=== PATIENT | female | born 1960 | race Caucasian/White ===

== ENCOUNTER 2017-07-27 13:45 | Emergency (ER) | payer OTHER ==
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
[2017-07-27 13:53] VITALS: O2SAT 91
[2017-07-27 15:16] VITALS: BP 117/74; PULSE 92; RESP 16; TEMP 97.2
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
== END 2017-07-27 15:17 | disposition home or self-care (01) ==
LOC: EDUNIT# → EEVIPCON 13:45
DX: S02.81XA Fracture of other specified skull and facial bones, right side, initial encounter for closed fracture (principal); Y04.2XXA Assault by strike against or bumped into by another person, initial encounter; Y93.89 Activity, other specified

== ENCOUNTER → 2018-10-07 | Outpatient (CLI) | payer MEDICAID | LOC: FLAB 13:07 | PROVIDERS: ATTEND Physician Assistant | DX: M25.562 Pain in left knee (principal); Z91.81 History of falling ==

== ENCOUNTER 2019-01-06 01:28 | Emergency (ER) | payer MEDICAID ==
[2019-01-06] MEDS ORDERED: KETOROLAC 15 MG/1 ML SDV IVP ONE (01:35)
[2019-01-06] MEDS ORDERED: HYDROmorphONE/DILAUDID 1 MG/ML INJ IVP ONE (01:35)
[2019-01-06 01:55] LABS: PLATELET COUNT 281 10^3/uL (150-400)
[2019-01-06] MEDS ORDERED: IOPAMIDOL (ISOVUE-300) 100 ML BTL ONE (01:59)
[2019-01-06] MEDS ORDERED: MIDAZOLAM 2 MG/2 ML VIAL IVP ONE (02:15)
[2019-01-06] MEDS ORDERED: HYDROmorphONE/DILAUDID 2 MG/ML INJ IVP ONE (02:16)
--- NOTE | 2019-01-06 02:17 | EDPHY ---
H & P Stated Complaint: R shoulder pain, neck pain, hysterical, anxiety, ETOH Time Seen by Provider: 01/06/19 01:35 HPI/ROS: Chief Complaint: Neck and back pain HPI: 58-year-old woman began having a sudden onset of pain in her right neck and shoulder and back at 9:00 a.m. This evening. Pain was severe. Patient began drinking alcohol in an attempt to alleviate the pain. No new numbness or weakness. She arrived to the emergency department screaming and hysterical. She is ambulating without any difficulty. She does have a history of Graves disease. She is unable to provide any further history because she will not answer any of my questions. She is screaming and hollering, repeatedly sitting down and standing up. ROS: 10 systems were reviewed and were negative except those elements noted in the HPI. PMH: Graves disease, Social History: No smoking, occasional alcohol, no recreational drug use Family History: non-contributory Physical Exam: Gen: Awake, Alert, hollering and pain, tearful, anxious, hysterical HEENT: Nose: no rhinorrhea Eyes: PERRLA, EOMI Mouth: Moist mucosa Neck: Supple, no JVD, complains of tenderness anywhere I touch artery back of her neck right or left even with the lightest of touch. Chest: nontender, lungs clear to auscultation Heart: S1, S2 normal, no murmur Abd: Soft, non-tender, no guarding Back: no CVA tenderness, no midline tenderness diffuse tenderness in her upper back complaining of severe pain wherever I touch Ext: no edema, non-tender Skin: no rash Neuro: CN II-XII intact, Sensation grossly intact, Strength 5/5 in bilateral upper and lower extremities - Personal History Current Tetanus Diphtheria and Acellular Pertussis (TDAP): No - Medical/Surgical History Hx Asthma: No Hx Chronic Respiratory Disease: No Hx Diabetes: No Hx Cardiac Disease: No Hx Renal Disease: No Hx Cirrhosis: No Hx Alcoholism: No Hx HIV/AIDS: No Hx Splenectomy or Spleen Trauma: No Other PMH: PMH: Breast CA, Graves disease, - Social History Smoking Status: Heavy smoker Constitutional: Initial Vital Signs Temperature (C) 36.7 C 01/06/19 01:33 Heart Rate 91 01/06/19 01:33 Respiratory Rate 20 01/06/19 01:33 Blood Pressure 188/88 H 01/06/19 01:33 O2 Sat (%) 93 01/06/19 01:33 O2 Delivery Mode Oxymask Allergies/Adverse Reactions: antihistamines Allergy (Uncoded 07/28/11 21:06) Home Medications: Medication Instructions Recorded Methmizole 07/28/11 traMADol 07/27/17 Medical Decision Making - Diagnostics Imaging Results: EXAM: CT Chest with Intravenous Contrast. CLINICAL HISTORY: CP TECHNIQUE: Axial computed tomography images of the chest with intravenous contrast. CONTRAST: With; 90mL/isovue 300 COMPARISON: None provided. FINDINGS: LUNGS: The lungs are clear. No focal airspace consolidation. No pulmonary mass. Basilar atelectasis. PLEURAL SPACES: No pleural effusion. No pneumothorax. HEART AND MEDIASTINUM: No cardiomegaly. No significant pericardial effusion. LYMPH NODES: No lymphadenopathy. BONES: No focal osseous abnormality or acute fracture. Degenerative changes of the spine. CHEST WALL AND UPPER ABDOMEN: Hepatic steatosis. The upper abdominal solid organs are otherwise unremarkable. The chest wall is unremarkable. Hypodense nodule right thyroid lobe, subcentimeter. IMPRESSION: 1. No acute cardiopulmonary finding. 2. No pulmonary thrombus/emboli. 3. Hepatic steatosis. ELECTRONICALLY SIGNED BY: Patrick Martienz DO January 06, 2019 3:02:22 AM MDT ED Course/Re-evaluation: 58-year-old intoxicated woman presenting in hysterics complaining of severe neck and upper back pain. She is neurologically intact. Given her difficult history examination and the severity of her symptoms and presentation patient will be going to CT scan to rule out acute aortic dissection. CT scan is negative for acute dissection or other acute process. Patient is now resting after IV analgesia and some sedation. Plan will be to reassess when she is more awake and coherent. Patient is improved. She is awake alert. She is completely neurologically intact. Patient states she has cleared the bathroom. She ambulated unassisted to the bathroom without any difficulty. She has some persistent right trapezius spasm with mild tenderness. I placed a Lidoderm patch. Symptoms consistent with musculoskeletal pain and torticollis. She has no neurologic symptoms whatsoever. No risk factors for acute spinal cord process. She had has a normal CT scan of her chest. Plan will be for discharge and follow up with primary care. Oral analgesia [id number]. - Data Points Laboratory Results: Laboratory Results 01/06/19 01:45 01/06/19 01:45 01/06/19 01/06/19 01/06/19 01:56 01:45 01:45 WBC 11.79 10^3/uL H 10^3/uL (3.80-9.50) RBC 4.17 10^6/uL L 10^6/uL (4.18-5.33) Hgb 13.3 g/dL g/dL (12.6-16.3) POC Hgb 14.6 gm/dL gm/dL (12.6-16.3) Hct 38.7 % % (38.0-47.0) POC Hct 43 % % (38-47) MCV 92.8 fL fL (81.5-99.8) MCH 31.9 pg pg (27.9-34.1) MCHC 34.4 g/dL g/dL (32.4-36.7) RDW 14.4 % % (11.5-15.2) Plt Count 281 10^3/uL 10^3/uL (150-400) MPV 8.5 fL L fL (8.7-11.7) Neut % (Auto) 62.8 % % (39.3-74.2) Lymph % (Auto) 24.9 % % (15.0-45.0) [place] % (Auto) 10.1 % % (4.5-13.0) Eos % (Auto) 1.6 % % (0.6-7.6) Baso % (Auto) 0.3 % % (0.3-1.7) Nucleat RBC Rel Count 0.0 % % (0.0-0.2) Absolute Neuts (auto) 7.39 10^3/uL H 10^3/uL (1.70-6.50) Absolute Lymphs (auto) 2.94 10^3/uL 10^3/uL (1.00-3.00) Absolute Monos (auto) 1.19 10^3/uL H 10^3/uL (0.30-0.80) Absolute Eos (auto) 0.19 10^3/uL 10^3/uL (0.03-0.40) Absolute Basos (auto) 0.04 10^3/uL 10^3/uL (0.02-0.10) Absolute Nucleated RBC 0.00 10^3/uL 10^3/uL (0-0.01) Immature Gran % 0.3 % % (0.0-1.1) Immature Gran # 0.04 10^3/uL 10^3/uL (0.00-0.10) POC Sodium 128 mEq/L L mEq/L (135-145) Sodium 129 mEq/L L mEq/L (135-145) POC Potassium 4.2 mEq/L mEq/L (3.3-5.0) Potassium 4.5 mEq/L mEq/L (3.5-5.2) POC Chloride 92 mEq/L L mEq/L (97-110) Chloride 92 mEq/L L mEq/L (97-110) Carbon Dioxide 22 mEq/l mEq/l (22-31) POC Total CO2 24 mEq/L mEq/L (22-31) Anion Gap 15 mEq/L H mEq/L (6-14) POC BUN 9 mg/dL mg/dL (7-23) BUN 10 mg/dL mg/dL (7-23) Creatinine 0.5 mg/dL L mg/dL (0.6-1.0) POC Creatinine 0.8 mg/dL mg/dL (0.6-1.0) Estimated GFR > 60 Glucose 122 mg/dL H mg/dL (70-100) POC Glucose 125 mg/dL H mg/dL (70-100) Calcium 9.5 mg/dL mg/dL (8.5-10.4) Ethyl Alcohol 228 mg/dL H mg/dL (0-10) Medications Given: Discontinued Medications Hydromorphone HCl (Dilaudid) 0.5 mg IVP EDNOW ONE Stop: 01/06/19 01:36 Last Admin: 01/06/19 01:43 Dose: 0.5 mg Hydromorphone HCl (Dilaudid) 1 mg IVP EDNOW ONE Stop: 01/06/19 02:17 Last Admin: 01/06/19 02:24 Dose: 1 mg Ketorolac Tromethamine (Toradol) 15 mg IVP EDNOW ONE Stop: 01/06/19 01:36 Last Admin: 01/06/19 01:45 Dose: 15 mg Midazolam HCl (Versed) 1 mg IVP EDNOW ONE Stop: 01/06/19 02:16 Last Admin: 01/06/19 02:26 Dose: 1 mg Point of Care Test Results: Chemistry 01/06/19 01:56 POC Sodium 128 mEq/L L mEq/L (135-145) POC Potassium 4.2 mEq/L mEq/L (3.3-5.0) POC Chloride 92 mEq/L L mEq/L (97-110) POC Total CO2 24 mEq/L mEq/L (22-31) POC BUN 9 mg/dL mg/dL (7-23) POC Creatinine 0.8 mg/dL mg/dL (0.6-1.0) POC Glucose 125 mg/dL H mg/dL (70-100) ISTAT H&H 01/06/19 01:56 POC Hgb 14.6 gm/dL gm/dL (12.6-16.3) POC Hct 43 % % (38-47) Departure - Departure Disposition: Home, Routine, Self-Care Clinical Impression: Neck pain Condition: Good Instructions: Neck Pain (ED), Spasmodic Torticollis (ED) Additional Instructions: Take ibuprofen, 600 mg, 3 times a day. You may also take acetaminophen, 1000 mg every 6 hours. You may replace a Lidoderm patch every 24 hr, these are available over-the- counter. Apply ice for 15 minutes of every hour while awake. Make sure to remain active. Did do not lay in bed or sit in a chair for long periods. Avoid heavy lifting or bending at work until cleared by your physician. Follow up with your primary care physician in 2-3 days for further evaluation. Referrals: NONE *PRIMARY CARE P,. [Primary Care Provider] - As per Instructions
[2019-01-06] MEDS ORDERED: LIDOCAINE 4%/MENTHOL 1% PATCH TD ONE (04:30)
[2019-01-06 04:44] VITALS: BP 115/69
[2019-01-06] MEDS ORDERED: PATCH REMOVAL 1 EA PATCH TD SCH (21:00)
== END 2019-01-06 04:56 | disposition home or self-care (01) ==
DX: M54.2 Cervicalgia (principal); M25.511 Pain in right shoulder; E05.00 Thyrotoxicosis with diffuse goiter without thyrotoxic crisis or storm
CPT/HCPCS: 82435-PO; 82565-PO; 82947-PO; 84132-PO; 84295-PO; 84520-PO; 85014-ER; 96374; G0480; J1170; J1885; J2250; Q9967

== ENCOUNTER 2019-01-06 12:13 | Emergency (ER) | payer MEDICAID ==
[2019-01-06] MEDS ORDERED: KETOROLAC 30 MG/1 ML SDV IVP ONE (12:45)
[2019-01-06] MEDS ORDERED: ACETAMINOPHEN 500 MG TAB PO ONE (13:44)
[2019-01-06] MEDS ORDERED: LIDOCAINE 4%/MENTHOL 1% PATCH TD ONE (13:44)
--- NOTE | 2019-01-06 13:49 | EDPHY ---
H & P Stated Complaint: neck pain and spasms Time Seen by Provider: 01/06/19 13:08 HPI/ROS: CHIEF COMPLAINT: Neck pain HISTORY OF PRESENT ILLNESS: 58-year-old female with alcoholism presents with severe neck pain. Onset of right-sided neck pain yesterday evening. The pain is severe and associated with muscle spasms. She was seen in this emergency department and had an unremarkable CT of the chest. She was discharged home on a lidocaine patch and [id number] medications. Persistent severe pain since then. She had a couple of cocktails this morning to help alleviate the pain. The pain continues to be severe and increases with any movement. No chest or back pain. No numbness or weakness. REVIEW OF SYSTEMS: complete 10 point ROS reviewed and is negative except for the noted elements in the HPI - Personal History Current Tetanus/Diphtheria Vaccine: Yes Current Tetanus Diphtheria and Acellular Pertussis (TDAP): Yes - Medical/Surgical History Hx Asthma: No Hx Chronic Respiratory Disease: No Hx Diabetes: No Hx Cardiac Disease: No Hx Renal Disease: No Hx Cirrhosis: No Hx Alcoholism: No Hx HIV/AIDS: No Hx Splenectomy or Spleen Trauma: No Other PMH: PMH: Breast CA, Graves disease, - Social History Smoking Status: Heavy smoker Alcohol Use: Heavy - Physical Exam Exam: General Appearance: Alert, slurred speech Eyes: Pupils equal and round, horizontal nystagmus, no conjunctival pallor or injection ENT, Mouth: Mucous membranes moist Neck: Normal inspection, diffuse tenderness, even to very light palpation of the entire neck and paraspinous musculature, including the right suprascapular area; full range of motion without pain Respiratory: Lungs are clear to auscultation Cardiovascular: Regular rate and rhythm Gastrointestinal: Abdomen is soft and nontender Neurological: A&O, nonfocal, normal gait Skin: Warm and dry, no rash Extremities: Right upper extremity-full range of motion of the shoulder elbow and wrist without pain Psychiatric: Mood and affect normal Constitutional: Initial Vital Signs Temperature (C) 36.6 C 01/06/19 12:20 Heart Rate 84 01/06/19 12:20 Respiratory Rate 18 01/06/19 12:20 Blood Pressure 143/77 H 01/06/19 12:20 O2 Sat (%) 96 01/06/19 12:20 O2 Delivery Mode Room Air Allergies/Adverse Reactions: antihistamines Allergy (Uncoded 07/28/11 21:06) Home Medications: Medication Instructions Recorded Methmizole 07/28/11 traMADol 07/27/17 Hydrocodone/APAP 325 [Lorman 1 - 2 tab PO Q4H PRN #10 tab 01/06/19 5/325] Medical Decision Making - Diagnostics Imaging Results: Imaging Impressions Neck CTA 01/06/19 13:45 Impression: 1. No acute vascular findings. 2. Complete opacification of the left maxillary sinus, with possible erosion of the medial wall of the left maxillary sinus. 3. Thyroid ophthalmopathy. 4. Diffusely heterogeneous thyroid, with multiple small nodules. Thyroid ultrasound may be useful for further evaluation. 5. Slight increase in moderate to severe multilevel degenerative change including severe bilateral neural foraminal stenosis. 6. Additional findings, as above. Findings discussed with Marian Zavala M.D., on January 06, 2019 at 1446. Stenoses are calculated using [place] Symptomatic Carotid Endarterectomy Trial (NASCET) criteria. E:amm Imaging: Discussed imaging studies w/ fisher scallop Radiologist ED Course/Re-evaluation: CT scan of the neck reveals DJD, otherwise unremarkable. Results discussed with the patient. She feels much better and the pain has almost completely resolved. She has received Toradol and Decadron IV, as well as a lidocaine patch. I will discharge her home. Presentation consistent with neck strain. No evidence vascular dissection, cervical radiculopathy or bony abnormality. Strongly encouraged to follow up with primary care physician. - Data Points Laboratory Results: Laboratory Results 01/06/19 14:30 01/06/19 14:30 01/06/19 01/06/19 14:30 14:30 WBC 11.07 10^3/uL H 10^3/uL (3.80-9.50) RBC 3.65 10^6/uL L 10^6/uL (4.18-5.33) Hgb 11.8 g/dL L g/dL (12.6-16.3) Hct 33.7 % L % (38.0-47.0) MCV 92.3 fL fL (81.5-99.8) MCH 32.3 pg pg (27.9-34.1) MCHC 35.0 g/dL g/dL (32.4-36.7) RDW 14.0 % % (11.5-15.2) Plt Count 224 10^3/uL 10^3/uL (150-400) MPV 8.3 fL L fL (8.7-11.7) Neut % (Auto) 77.8 % H % (39.3-74.2) Lymph % (Auto) 11.0 % L % (15.0-45.0) [place] % (Auto) 10.6 % % (4.5-13.0) Eos % (Auto) 0.2 % L % (0.6-7.6) Baso % (Auto) 0.1 % L % (0.3-1.7) Nucleat RBC Rel Count 0.0 % % (0.0-0.2) Absolute Neuts (auto) 8.62 10^3/uL H 10^3/uL (1.70-6.50) Absolute Lymphs (auto) 1.22 10^3/uL 10^3/uL (1.00-3.00) Absolute Monos (auto) 1.17 10^3/uL H 10^3/uL (0.30-0.80) Absolute Eos (auto) 0.02 10^3/uL L 10^3/uL (0.03-0.40) Absolute Basos (auto) 0.01 10^3/uL L 10^3/uL (0.02-0.10) Absolute Nucleated RBC 0.00 10^3/uL 10^3/uL (0-0.01) Immature Gran % 0.3 % % (0.0-1.1) Immature Gran # 0.03 10^3/uL 10^3/uL (0.00-0.10) Sodium 124 mEq/L L mEq/L (135-145) Potassium 3.5 mEq/L mEq/L (3.5-5.2) Chloride 88 mEq/L L mEq/L (97-110) Carbon Dioxide 21 mEq/l L mEq/l (22-31) Anion Gap 15 mEq/L H mEq/L (6-14) BUN 8 mg/dL mg/dL (7-23) Creatinine 0.4 mg/dL L mg/dL (0.6-1.0) Estimated GFR > 60 Glucose 108 mg/dL H mg/dL (70-100) Calcium 8.9 mg/dL mg/dL (8.5-10.4) Ethyl Alcohol 105 mg/dL H mg/dL (0-10) Medications Given: Discontinued Medications Acetaminophen (Tylenol) 1,000 mg PO EDNOW ONE Stop: 01/06/19 13:45 Last Admin: 01/06/19 14:30 Dose: 1,000 mg Dexamethasone (Decadron) 4 mg PO EDNOW ONE Stop: 01/06/19 14:51 Last Admin: 01/06/19 14:54 Dose: 4 mg Ketorolac Tromethamine (Toradol) 30 mg IVP EDNOW ONE Stop: 01/06/19 12:46 Last Admin: 01/06/19 12:52 Dose: 30 mg Miscellaneous Medication (Icy Hot Lidocaine/Menthol 4%/1% Patch) 1 patch TD EDNOW ONE Stop: 01/06/19 13:45 Last Admin: 01/06/19 14:32 Dose: 1 patch Departure - Departure Disposition: Home, Routine, Self-Care Clinical Impression: Neck pain Condition: Good Instructions: Acute Neck Pain (ED) Additional Instructions: Ibuprofen 600 mg 3 times daily while the pain persists. Tylenol 650 mg every 4 hr as needed for pain. Use a lidocaine patch as directed on the packaging. Call your physician for a follow-up appointment. Referrals: John Nicholson MD [Medical Doctor] - As per Instructions Prescriptions: Hydrocodone/APAP 5/325 [Lorman 5/325] 1 - 2 tab PO Q4H PRN #10 tab PRN Reason: Pain, Moderate
[2019-01-06] MEDS ORDERED: IOPAMIDOL (ISOVUE 370) 100 ML BTL IV ONE (14:00)
[2019-01-06] MEDS ORDERED: DEXAMETHASONE 4 MG TAB PO ONE (14:50)
[2019-01-06 14:52] LABS: PLATELET COUNT 224 10^3/uL (150-400)
[2019-01-06 15:50] VITALS: BP 120/90
[2019-01-06] MEDS ORDERED: PATCH REMOVAL 1 EA PATCH TD SCH (21:00)
== END 2019-01-06 15:50 | disposition home or self-care (01) ==
LOC: EDUNIT#
DX: M54.2 Cervicalgia (principal); F10.10 Alcohol abuse, uncomplicated; F17.200 Nicotine dependence, unspecified, uncomplicated; Z85.3 Personal history of malignant neoplasm of breast
CPT/HCPCS: 96374; G0480; J1885; Q9967

== ENCOUNTER 2019-01-10 14:58 | Inpatient (IN) | payer MEDICAID ==
[2019-01-10] MEDS ORDERED: DIAZEPAM 10 MG/2 ML SYR IVP ONE (15:18)
[2019-01-10] MEDS ORDERED: KETAMINE 200 MG/20 ML VIAL IVP ONE (15:18)
[2019-01-10] MEDS ORDERED: HYDROmorphONE/DILAUDID 2 MG/ML INJ IVP ONE ×2 (15:18→19:39)
--- NOTE | 2019-01-10 15:19 | EDPHY ---
H & P Time Seen by Provider: 01/10/19 15:07 HPI/ROS: CHIEF COMPLAINT: Severe neck back and arm pain HISTORY OF PRESENT ILLNESS: Patient was seen here twice on January 06 with severe neck and back pain and had CT chest and CT neck both with IV contrast which did not show dissection or acute bony abnormality. She was discharged on pain medication returns today saying that is much worse. She says she can't sleep. She has neck pain radiating to both shoulders and elbows and the pain is worse with abduction of either arm. States it is severe. Associated with some tingling and a "shock" going down both legs. No headache or incontinence. REVIEW OF SYSTEMS: Eye: no change in vision ENT: no sore throat Cardiac: no chest pain or syncope Pulmonary: no cough or SOB Abdomen: no vomiting, diarrhea, abdominal pain Musculoskeletal: HPI Skin: no rash Neuro: no headache Constitutional: no fever : no urinary symptoms A comprehensive 10 point review of systems is otherwise negative aside from elements mentioned in the history of present illness. PAST MEDICAL HISTORY: Includes breast cancer, and Graves disease Social history: Smoker, here with a neighbor General Appearance: Alert and conversant, cooperative. Eyes: No scleral icterus. ENT, Mouth: Normal mucous membranes. Respiratory: Normal respiratory effort, breath sounds equal, lungs are clear to auscultation. Cardiovascular: Regular rate and rhythm. Gastrointestinal: Abdomen is soft and non tender. Neurological: Alert, face symmetric, normal sensory in extremities. Motor is difficult to determine upper extremities because she will not abduct her arms due to pain at the shoulders. Speech is fluent. Patellar reflexes 1+ bilateral and toes are downgoing, extensor hallucis strength normal. No clonus. She is ambulatory. Skin: No zoster. Patient is very hyperesthetic to touch. Musculoskeletal: No midline spinal tenderness. No extremity tenderness. I can rotate both arms without pain although when I try passive abduction it hurts her on both sides in her shoulders. Can't actively abduct due to pain, per patient. She is tender to palpation in both upper arms but compartments are soft. Normal motor sensory and radial pulse in both hands/wrists. Psychiatric: Appears anxious and agitated. Intermittently tearful. Emergency Department course/MDM: Patient is intermittently screaming in pain despite my standing right next to her in the room conducting the interview. Consideration is given for central cervical disc, I think that given her recent CT angiography studies that vascular dissection or aneurysm or fracture are all unlikely. Ketamine 30, Valium 5, Dilaudid 0.5, MRI cervical spine. Differential considered including but not limited to central cervical disc herniation, rhabdomyolysis, polymyalgia rheumatica, septic joint in the shoulder. 193: C3-5 epidural fluid collection, [place]. A possible cervical epidural abscess. 1937: Discussed with Astrid, recommended IV antibiotics, will review MRI, wants her to be admitted to medicine. Blood cultures, IV vancomycin 1 g. Smoking Status: Heavy smoker Constitutional: Initial Vital Signs Temperature (C) 36.4 C 01/10/19 15:02 Heart Rate 76 01/10/19 15:02 Respiratory Rate 18 01/10/19 15:02 Blood Pressure 116/96 H 01/10/19 15:02 O2 Sat (%) 96 01/10/19 15:02 O2 Delivery Mode Nasal Cannula O2 (L/minute) 4 Allergies/Adverse Reactions: antihistamines Allergy (Uncoded 07/28/11 21:06) Home Medications: Medication Instructions Recorded Methmizole 07/28/11 traMADol 07/27/17 Hydrocodone/APAP 5/325 [[place] 1 - 2 tab PO Q4H PRN #10 tab 01/06/19 5/325] Medical Decision Making - Diagnostics Imaging Results: Imaging Impressions Cervical Spine MRI 01/10/19 15:19 Impression: 1. Peripherally enhancing right dorsal epidural fluid collection, suggesting abscess C3-C4 through C5, with possible extension through the right C4-C5 neural foramina/facets, with a right paraspinal fluid collection/abscess measuring up to 4.5 cm craniocaudal. 2. Extensive inflammation in the area of the fluid collection and abscess, including along the right C3 through C5 facets and neural foramina, with edema/ enhancement of the right C4-C5 facets, making it difficult to exclude osteoarthritis. 3. Multilevel degenerative change as above, with severe bilateral neural foraminal stenosis from C3 through C7. Findings discussed with Dr. Jeremy Rashid on January 10, 2019 at 1936 hours. PICC Line Insertion 01/10/19 16:48 Impression: 5 Austrian double lumen peripherally inserted central catheter is ready to use. Bibasilar reticular opacities probably represent subsegmental atelectasis. Guidance Ultrasound 01/10/19 16:51 Impression: 5 Austrian double lumen peripherally inserted central catheter is ready to use. Bibasilar reticular opacities probably represent subsegmental atelectasis. Chest X-Ray 01/10/19 17:16 Impression: 5 Austrian double lumen peripherally inserted central catheter is ready to use. Bibasilar reticular opacities probably represent subsegmental atelectasis. 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 Rashid, exclusively with the care of this patient was 40 minutes, exclusive of PA or CARDIAC MONITOR time and exclusive of separate procedures. The organ system at risk was neurologic and I ordered pain medication, IV antibiotics, multiple diagnostics, specialist consultation to stabilize the patient and prevent worsening of the patient's condition. - Data Points Laboratory Results: Laboratory Results 01/10/19 15:30 01/10/19 19:51 01/10/19 01/10/19 01/10/19 19:51 15:30 15:30 WBC 14.52 10^3/uL H 10^3/uL (3.80-9.50) RBC 4.07 10^6/uL L 10^6/uL (4.18-5.33) Hgb 12.9 g/dL g/dL (12.6-16.3) Hct 38.3 % % (38.0-47.0) MCV 94.1 fL fL (81.5-99.8) MCH 31.7 pg pg (27.9-34.1) MCHC 33.7 g/dL g/dL (32.4-36.7) RDW 13.6 % % (11.5-15.2) Plt Count 264 10^3/uL 10^3/uL (150-400) MPV 9.0 fL fL (8.7-11.7) Neut % (Auto) 84.5 % H % (39.3-74.2) Lymph % (Auto) 7.6 % L % (15.0-45.0) [place] % (Auto) 7.2 % % (4.5-13.0) Eos % (Auto) 0.2 % L % (0.6-7.6) Baso % (Auto) 0.1 % L % (0.3-1.7) Nucleat RBC Rel Count 0.0 % % (0.0-0.2) Absolute Neuts (auto) 12.26 10^3/uL H 10^3/uL (1.70-6.50) Absolute Lymphs (auto) 1.10 10^3/uL 10^3/uL (1.00-3.00) Absolute Monos (auto) 1.05 10^3/uL H 10^3/uL (0.30-0.80) Absolute Eos (auto) 0.03 10^3/uL 10^3/uL (0.03-0.40) Absolute Basos (auto) 0.02 10^3/uL 10^3/uL (0.02-0.10) Absolute Nucleated RBC 0.00 10^3/uL 10^3/uL (0-0.01) Immature Gran % 0.4 % % (0.0-1.1) Immature Gran # 0.06 10^3/uL 10^3/uL (0.00-0.10) ESR 110 MM/HR H MM/HR (0-30) Sodium 120 mEq/L L mEq/L REJ (135-145) Potassium 3.9 mEq/L mEq/L TNP (3.5-5.2) Chloride 86 mEq/L L mEq/L TNP (97-110) Carbon Dioxide 21 mEq/l L mEq/l TNP (22-31) Anion Gap 13 mEq/L mEq/L TNP (6-14) BUN 14 mg/dL mg/dL TNP (7-23) Creatinine 0.5 mg/dL L mg/dL TNP (0.6-1.0) Estimated GFR > 60 TNP Glucose 81 mg/dL mg/dL TNP (70-100) Calcium 8.7 mg/dL mg/dL TNP (8.5-10.4) Creatine Kinase 42 IU/L IU/L TNP (0-156) C-Reactive Protein Pending TNP Medications Given: Vancomycin/Sodium Chloride (Vancomycin 1 Gm (Premix)) 250 mls @ 250 mls/hr IV EDNOW ONE PRN Reason: Protocol Stop: 01/10/19 20:38 Last Admin: 01/10/19 20:01 Dose: 250 mls Discontinued Medications Diazepam (Valium) 5 mg IVP EDNOW ONE Stop: 01/10/19 15:19 Last Admin: 01/10/19 18:01 Dose: 5 mg Hydromorphone HCl (Dilaudid) 0.5 mg IVP EDNOW ONE Stop: 01/10/19 15:19 Last Admin: 01/10/19 18:10 Dose: 0.5 mg Hydromorphone HCl (Dilaudid) 1 mg IVP EDNOW ONE Stop: 01/10/19 19:40 Last Admin: 01/10/19 20:00 Dose: 1 mg Sodium Chloride (Ns) 1,000 mls @ 0 mls/hr IV EDNOW ONE; Wide Open PRN Reason: Protocol Stop: 01/10/19 20:01 Last Admin: 01/10/19 20:12 Dose: 1,000 mls Ketamine HCl (Ketamine) 30 mg IVP EDNOW ONE Stop: 01/10/19 15:19 Last Admin: 01/10/19 20:00 Dose: 30 mg Departure - Departure Disposition: [facility] Clinical Impression: Abscess in epidural space of cervical spine Condition: Serious
[2019-01-10 15:47] LABS: PLATELET COUNT 264 10^3/uL (150-400)
[2019-01-10] MEDS ORDERED: ALTEPLASE 2 MG VIAL IVP PRN (16:48)
[2019-01-10] MEDS ORDERED: GADOBUTROL 10 ML VIAL IVP ONE (19:03)
[2019-01-10] MEDS ORDERED: VANCOMYCIN HCL/NORMAL SALINE 250 ML IV ONE (19:39)
--- NOTE | 2019-01-10 19:57 | PDCONSULT ---
Instructional Support Specialist Note: NEUROSURGERY imaging reviewed, full consult to follow 58F with neck and arm pain, MRI shows dorsal cervical epidural abscess with moderate to severe stenosis and fluid collection/abscess in the paraspinous muscles toward the right. while it is possible that this may do fine with IR drainage of the muscular abscess and IV antibiotics, would likely favor right C4-5 hemilaminotomy and washout. keep NPO for now, will consider surgical intervention tomorrow blood cultures pending, consult ID please call if there are any neurologic changes Astrid
[2019-01-10] MEDS ORDERED: NS 1,000 ML IV ONE (20:00)
[2019-01-10 20:22] LABS: CREATINE KINASE 42 IU/L (0-156)
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
[2019-01-10] MEDS ORDERED: GABAPENTIN 300 MG CAP PO SCH (21:00)
[2019-01-10] MEDS ORDERED: ONDANSETRON 4 MG/2 ML VIAL IVP PRN (21:30)
[2019-01-10] MEDS ORDERED: ACETAMINOPHEN 325 MG TAB PO PRN (21:30)
[2019-01-10] MEDS: NS 1,000 ML IV SCH (21:35)
[2019-01-10] MEDS ORDERED: LORazepam 2 MG/ML INJ IVP ONE (22:53)
[2019-01-10] MEDS: ZOLPIDEM TARTRATE 5 MG TAB PO PRN (23:00)
[2019-01-10] MEDS: HYDROmorphONE/DILAUDID 1 MG/ML INJ IVP PRN (23:00)
[2019-01-10] MEDS: MELATONIN 3 MG TAB PO SCH (23:16)
[2019-01-10] MEDS: CEFEPIME HCL 2 GM in NS 100 ML IV SCH (23:42)
[2019-01-11] MEDS: CEFEPIME HCL 2 GM in NS 100 ML IV SCH (06:38)
[2019-01-11] MEDS: NS 1,000 ML IV SCH ×2 (06:41→21:26)
[2019-01-11] MEDS ORDERED: VANCOMYCIN 1.25 GM in NS 250 ML IV SCH (08:00)
[2019-01-11] MEDS: SPIRONOLACTONE 25 MG TAB PO SCH (08:53)
[2019-01-11] MEDS: LOSARTAN POTASSIUM 25 MG TAB PO SCH (08:55)
[2019-01-11] MEDS: traMADol 50 MG TAB PO SCH ×2 (08:56→21:24)
[2019-01-11] MEDS: FLECAINIDE ACETATE 100 MG TAB PO SCH ×2 (08:56→21:24)
[2019-01-11] MEDS: FUROSEMIDE 20 MG TAB PO SCH ×2 (08:56→15:36)
[2019-01-11] MEDS: METHIMAZOLE 5 MG TAB PO SCH (08:57)
[2019-01-11] MEDS: HYDROmorphONE/DILAUDID 1 MG/ML INJ IVP PRN (09:02)
--- NOTE | 2019-01-11 10:28 | PDCONSULT ---
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 precedex - MRI thoracic and lumbar spine (severe pain also in left lumbar area and hip) - on vanc and ceftriaxone - case discussed with ID, Dr. Mcmillan - continue ICU care with frequent neuro checks, call immediately with any weakness or new neurologic deficit Astrid
--- NOTE | 2019-01-11 10:55 | GCON ---
[f rep st] CONSULTATION INFECTIOUS DISEASE CONSULTATION PATIENT. DATE OF CONSULTATION: 01/11/2019 REQUESTING PHYSICIAN: Dr. Luis Silveira. REASON FOR CONSULTATION: Cervical epidural abscess. HISTORY OF PRESENT ILLNESS: The patient is a 58-year-old female with a past medical history of atrial fibrillation, alcoholism, and hyperthyroidism, who I am asked to see in consultation for a cervical epidural abscess. History is limited due to the patient's inability to provide history secondary to ongoing pain. The patient describes having worsening neck pain in the cervical region over the last several weeks. She also notes that she has had fever, chills and night sweats for the last 2 weeks. She does describe sustaining a fall during that timeframe. Difficult to determine historically if she has had any recent skin infections or dental problems. She denies any urinary tract symptoms. The patient was seen in the emergency department beginning on 01/06/2019, with neck pain. At that time, a neck CTA was performed, which showed no acute vascular findings, moderate to severe multilevel degenerative disk disease with bilateral neural foraminal stenosis, and complete opacification of left maxillary sinus with question of erosion of the medial wall left maxillary sinus. She was treated supportively during that timeframe. A CT scan of the chest was also obtained which showed no evidence of dissection or pulmonary emboli. She returned to the emergency department on 01/10/2019, with significant worsening of her neck pain that was interfering with sleep. Pain was noted radiate to both shoulders and arms. She also complains now of new onset left buttock pain. Laboratory evaluation revealed a white blood cell count of 14.5 with 84% neutrophils. C-reactive protein was elevated at 268. MRI of the cervical spine was obtained based on the above presentation and shows findings of a peripherally enhancing fluid collection at the right dorsal aspect of the spinal cord extending from C3-C4 through the midportion of C5 measuring 2.5 cm x 1.3 x 0.6 cm compatible with epidural abscess; epidural enhancement extends inferiorly to T3. There is also noted to be fluid collection in the right C4-5 facet region with an irregular fluid collection in the right posterior paraspinal soft tissues measuring 2.9 x 1.6 x 4.5 cm. There is evidence of cervical cord compression associated with the epidural abscess. The patient was started empirically on vancomycin and cefepime. Blood cultures were obtained. Preliminary neurosurgical evaluation indicates plans for incision and drainage with timing complicated by use of Pradaxa for her atrial fibrillation. Given the above findings, I am now asked to assist in her ongoing management. PAST MEDICAL HISTORY: Atrial fibrillation, congestive heart failure, alcoholism , hyperthyroidism, breast cancer treated with radiation therapy, hypertension. PAST SURGICAL HISTORY: Unable to obtain surgical history and review of outpatient records in [place] does not show any surgical history. CURRENT MEDICATIONS: Vancomycin 1.25 g IV q.12 hours, cefepime 2 g IV q.8 hours , flecainide 50 mg p.o. twice daily, Lasix 20 mg p.o. twice daily, Neurontin 300 mg p.o. at bedtime, Dilaudid as needed for pain, Cozaar 12.5 mg p.o. daily, melatonin 3 mg p.o. at bedtime, methimazole 5 mg p.o. daily, metoprolol-XL 200 mg p.o. daily, Aldactone 12.5 mg p.o. daily, Ultram 50 mg p.o. twice daily. ALLERGIES: Antihistamines, which cannot be further characterized. SOCIAL HISTORY: ER records note patient is a smoker and with heavy alcohol intake; this cannot be quantified by me today. FAMILY HISTORY: Cannot be obtained. REVIEW OF SYSTEMS: Outside that noted in the HPI, remainder of 10-system review is unremarkable except for ongoing pain which has been difficult to control. PHYSICAL EXAMINATION: VITAL SIGNS: Temperature 36.7, heart rate 107, respiratory rate 18, blood pressure 147/75, oxygen saturation 94% on 2 L. GENERAL: The patient is an obese female in mild distress secondary to pain; she appears nontoxic. HEENT: There is no scleral icterus, conjunctival injection, or conjunctival petechiae. There is exophthalmos present bilaterally. Oropharynx shows dry mucous membranes. Dentition in fair repair. There is no nasal discharge. No sinus tenderness. NECK: Tender with range of motion, but no meningismus. There is no point tenderness over the cervical spine. No palpable adenopathy present. CHEST: Clear to auscultation bilaterally without adventitious sounds. Respiratory effort is normal. CARDIOVASCULAR: Tachycardic, with a 2/6 early systolic murmur heard throughout. No gallops or rubs noted. ABDOMEN: Obese, diffusely tender without peritoneal signs. Bowel sounds are present. No palpable organomegaly. MUSCULOSKELETAL: No cyanosis, clubbing, or edema. There is a resolving bruise with edema over the left anterior cabrales and some small adjacent abrasions without cellulitis. No stigmata of endocarditis present. There is pain with internal rotation of the left hip. NEUROLOGIC: Patient responds to questions and mumbles responses. Cranial nerves 2-12 appear grossly intact. Hand strength in the upper extremities is 5/5 bilaterally. Foot strength is also 5/ 5 bilaterally in the lower extremities, but elicits pain in the left lower extremity. LYMPHATICS: No cervical or supraclavicular nodes. No inguinal nodes palpable. : Rust catheter is in place. SKIN: No intertrigo. LABORATORY DATA: White blood cell count 14.5, hematocrit 38.3, platelets 264, neutrophils 85%. Serum creatinine is 0.5, admission sodium 120, current sodium 128, CRP 268. TSH 3.0, T4 1.6, T3 2.5. Alcohol level on 01/06/2019, 228 and 105 respectively for each ED visit. Blood cultures x2 are pending. Cervical spine MRI as outlined above, which was reviewed and interpreted by me with Radiology today. IMPRESSION: Cervical epidural abscess: Most likely, this will be due to organisms such as Staphylococcus aureus or beta-hemolytic streptococci; oropharyngeal organisms also of consideration with gram-negative rods in the differential diagnosis, but of lower likelihood. The patient does not have discrete pseudomonal risk factors. Suspect patient had transient bacteremia at some point leading to subsequent seeding of degenerative spine. Given the presence of left buttock pain, I think additional imaging is warranted to ensure no evidence of lumbar epidural abscess or psoas abscess which could also present in similar fashion. We will obtain echocardiogram given presence of heart murmur to assess for any potential endocarditis. RECOMMENDATIONS: 1. Agree with vancomycin 1.25 g IV q.12 hours. 2. Ceftriaxone 2 g IV q.12 hours. 3. Discontinue cefepime given no pseudomonal risk factors. 4. Plans for imaging of lumbar spine with MRI if patient can tolerate. 5. We will review further with Neurosurgery regarding surgical plans for drainage of cervical epidural abscess. 6. Follow up blood cultures as available. 7. Echocardiogram as outlined above. 8. Thank you for this consultation. We will continue to follow with you. /[id number]/MODL MTDD
--- NOTE | 2019-01-11 12:33 | ECHO ---
[email or web address] [address] [address] Main: [phone] Echocardiography Examination Transthoracic Name: NIGEL HENDERSON MR#: [id number] Study Date: 01/11/2019 Study Time: 10:43 AM Date of : 1960 Age: 58 year(s) Height: 167.6 cm (66 in.) Weight: 79.83 kg (176 lb.) BSA: 1.89 m2 Gender: Female Examination: Echo Contrast: Image Quality: Technically Difficult Rhythm: Sinus tachycardia Heart Rate: 111 bpm BP: 133 mmHg/79 mmHg Indication: epidural abcess, heart murmur, assess for valvular abnormalities Procedure Staff Referring Physician: Musical Therapist: Tamy Thomas [facility] Reading Physician: Thomas Bond MD Requesting Provider: Ordering Physician: Lalo Mcmillan Indication: epidural abcess, heart murmur, assess for valvular abnormalities Measurements Chambers AV/MV Label Value Normal Value Label Value Normal Value LVOT Vmax 0.92 m/s (0.7m/s - 1.1m/s) AV PGmax 10 mmHg LVOTd 2.1 cm (1.8cm - 2cm) AV Vmax 1.62 m/s LVDd, 2D 4.4 cm (3.9cm - 5.3cm) CINDI (Vmax) 2 cm2 LVDs, 2D 3 cm (2.1cm - 4cm) TV/PV IVSd, 2D 0.9 cm (0.6cm - 1.1cm) Label Value Normal Value LVPWd, 2D 0.8 cm PV PGmax 4 mmHg LVEF, 2D 63 % (54% - 74%) PV Vmax, Caliper 1 m/s (0.6m/s - 0.9m/s) LADs, 2D 2.5 cm (2.7cm - 3.8cm) Additional Vessels Label Value Normal Value AoAsc 2.8 cm AoRoot, 2D 3.2 cm (1.4cm - 2.6cm) Conclusions Left Ventricle: CONCLUSIONS:1)Very technically limited echo.2)Normal LV size and systolic function with a LVEF of 63%.3)All four cardiac valves poorly visualized but no obvious vegetations noted.note: if clinically suspicious for SBE, consider NICHOLAS. Patient: NIGEL HENDERSON Study Date: 01/11/2019 Page 1 of 2 10:43 AM Findings Left Ventricle: Left ventricle is normal in size. CONCLUSIONS: 1)Very technically limited echo. 2)Normal LV size and systolic function with a LVEF of 63%. 3)All four cardiac valves poorly visualized but no obvious vegetations noted. note: if clinically suspicious for SBE, consider NICHOLAS. EF evaluated by fractional shortening (2D). Cannot rule out wall motion abnormality due to poor endocardial definition. Cannot determine LAP and Diastolic Dysfunction Grade. Right Ventricle: Grossly normal right ventricular size. Right ventricular systolic function is normal. Left Atrium: The left atrium is normal in size. Right Atrium: The right atrium is normal in size. Mitral Valve: Mitral valve is not well visualized. No mitral valve stenosis. No obvious vegetation is identified on the mitral valve. Aortic Valve: Aortic valve not well visualized. There is no aortic stenosis. No vegetation is identified in the aortic valve. Tricuspid Valve: No tricuspid valve stenosis. No vegetation is identified in the tricuspid valve. Pulmonary artery pressure cannot be assessed due to inadequate TR signal. Pulmonic Valve: Pulmonic valve is poorly visualized. Aorta: The aortic root size in 2D measures 3.2 cm. The aortic root exhibits normal size. The ascending aorta measures 2.8 cm. Aorta Measurements AoRoot, 2D is 3.2 cm. IVC: The inferior vena cava is normal in size and course. Pericardium: No pericardial effusion. Exam Details Procedure Ordered: Echo Procedure Status: Routine study Image Quality: Technically Difficult Facility Location: Cardiac Echo 1 (No Signature Object) Patient: NIGEL HENDERSON Study Date: 01/11/2019 Page 2 of 2 10:43 AM [id number]
--- NOTE | 2019-01-11 12:47 | HOSPPROG ---
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 Cont current medications. May need bridging pending surgical timing cont vancomycin. Cefepime changed to Rocephin per ID. Check TTE. Check MRI thoracic/lumbar regions. Cultures pending Na has increased by 8 in about 12 hours. Will hold fluids and monitor Na closely monitor volume status closely. She is on diuretics chronically Pain mgmt: NSG is considering Precedex. She has not received a large amount of narcotics. Dilaudid PRN, Tramadol scheduled, Gabapentin scheduled Subjective: sleeping. She was given IV Dilaudid earlier Objective: Vital Signs Temp Pulse Resp BP Pulse Ox 36.8 C 112 H 19 132/103 H 93 01/11/19 12:00 01/11/19 12:00 01/11/19 12:00 01/11/19 12:00 01/11/19 12:00 Laboratory Results 01/11/19 11:25 01/10/19 01/11/19 01/12/19 05:59 05:59 05:59 Intake Total 921 120 Output Total 1550 Balance -629 120 - Physical Exam Constitutional: no apparent distress Eyes: PERRL, EOMI Ears, Nose, Mouth, Throat: moist mucous membranes Cardiovascular: regular rate and rhythym Respiratory: no respiratory distress Gastrointestinal: normoactive bowel sounds Skin: warm Psychiatric: interacting appropriately, not anxious Lymph, Heme, Immunologic: No petechiae ICD10 Worksheet Patient Problems: Problems Problem Status Onset Abscess in epidural space of cervical spine Acute
[2019-01-11] MEDS: METOPROLOL SUCCINATE XR 100 MG TAB PO SCH (13:36)
[2019-01-11] MEDS: NAFCILLIN SODIUM 2 GM in D5W 100 ML IV SCH ×3 (13:51→21:24)
[2019-01-11] MEDS ORDERED: ACETAMINOPHEN 325 MG TAB PO SCH ×2 (14:00→22:00)
--- NOTE | 2019-01-11 14:26 | PDMN ---
Medical Necessity Medical necessity: Pt meets IP criteria per MD & MCG MG-N Neurology; est los >2 mn for eval/tx of cervical epidural abscess with mod/severe spinal stenosis, intermittent afib, hyponatremia, severe 06/12 pain & encephalopathy; admit to ICU for further workup/close monitoring, IV abx, Neurosurgery/ID consults & Precedex gtt; hx AFIB on AC, CHF, alcoholism; per progress note & order 01/11/19
[2019-01-11] MEDS: ACETAMINOPHEN 500 MG TAB PO SCH ×2 (14:55→22:09)
[2019-01-11] MEDS: GABAPENTIN 300 MG CAP PO SCH ×2 (15:36→21:24)
--- NOTE | 2019-01-11 16:13 | ASMTCMCOM ---
CM Note CM Note Notes: Chart reviewed for discharge planninf purposes. Patient is a 56 year old female admitted via ED for c/o severe pain in her neck with radiation down her arms. She is admtted to ICU for spinal abcess. CM to follow for needs. Plan: TBD Date Signed: 01/11/2019 04:12 PM Electronically Signed By:Sushma Reyes RN
[2019-01-11] MEDS ORDERED: GADOBUTROL 10 ML VIAL IVP ONE (17:20)
[2019-01-11] MEDS: DEXMEDETOMIDINE HCL 400 MCG in NS 100 ML IV SCH (18:33)
[2019-01-11] MEDS: MELATONIN 3 MG TAB PO SCH (21:24)
[2019-01-12] MEDS: NAFCILLIN SODIUM 2 GM in D5W 100 ML IV SCH ×6 (02:13→23:41)
[2019-01-12] MEDS: HYDROmorphONE/DILAUDID 1 MG/ML INJ IVP PRN (03:04)
[2019-01-12] MEDS: ACETAMINOPHEN 500 MG TAB PO SCH ×3 (05:24→21:53)
[2019-01-12 05:38] LABS: PLATELET COUNT 207 10^3/uL (150-400)
[2019-01-12] MEDS: FUROSEMIDE 20 MG TAB PO SCH (06:04)
[2019-01-12] MEDS ORDERED: POTASSIUM CL 20 MEQ/15 ML UDCUP PO ONE (06:18)
[2019-01-12] MEDS ORDERED: MAGNESIUM OXIDE 400 MG TAB PO ONE (06:19)
--- NOTE | 2019-01-12 08:26 | NEUSURGPN ---
Assessment/Plan: A: 58 yo female with cervical and para cervical abscess. p: -MRI T and L spine performed as well due to hip and abdominal pain and no other signs of abscess found. Some epidural enhancement down to T3 but no other abscess -On IV abx per ID -Was on Pradaxa so unable to washout until Sunday -Continue q2 hour neuro checks-stable and intact. No signs of spinal cord compresson -Plan for OR tomorrow morning (still confirming with OR on time for C4-5 laminectomy for washout of epidural abscess -NPO midnight -Will consent in am- too somnolent to consent currently -Optimize pain management- will try muscle relaxant for low back/hip pain -Discussed with S: Patient doing somewhat better this morning. Per RN did have to start on small amount of Precedex after MRI due to pain. No changes in arm or leg strength. Continued shoulder and neck pain. O: Somnolent but arousable, quickly falls asleep after performing commands but alert to person, situation, place, year NAD, VSS CN II-XII grossly intact PERRL, EOMI BUE 5/5 Negative Hoffmans bilaterally BLE 5/5= SILT - Physician Discussed Patient with : Astrid Neurosurgery Physical Exam - Vitals, I&O, Labs I and O 01/11/19 01/12/19 01/13/19 05:59 05:59 05:59 Intake Total 921 1890 Output Total 1550 1450 Balance -629 440 Weight 79.379 kg Intake: Oral (ml) 610 IV Intake (ml) 530 IV Infused (ml) 921 750 Ns 1,000 ml @ 100 mls/hr 921 750 IV CONT ESTHER Rx#: [id number] Output: Urine (ml) 1550 1450 Bedpan 100 Catheter 1450 1450 Other: Number of Stools Bedpan 0 Catheter 0 Vital Signs Temp Pulse Resp BP Pulse Ox 36.5 C 86 16 107/80 94 01/12/19 06:00 01/12/19 06:00 01/12/19 06:00 01/12/19 06:00 01/12/19 06:00 Laboratory Results 01/12/19 05:10 01/12/19 05:10 ICD10 Worksheet Patient Problems: Problems Problem Status Onset Abscess in epidural space of cervical spine Acute
[2019-01-12] MEDS: SPIRONOLACTONE 25 MG TAB PO SCH (08:27)
[2019-01-12] MEDS: LOSARTAN POTASSIUM 25 MG TAB PO SCH (08:28)
[2019-01-12] MEDS: GABAPENTIN 300 MG CAP PO SCH ×3 (08:30→21:52)
[2019-01-12] MEDS: traMADol 50 MG TAB PO SCH ×3 (08:30→22:02)
[2019-01-12] MEDS: FLECAINIDE ACETATE 100 MG TAB PO SCH ×2 (08:31→21:53)
[2019-01-12] MEDS: METHIMAZOLE 5 MG TAB PO SCH (08:31)
[2019-01-12] MEDS: METOPROLOL SUCCINATE XR 100 MG TAB PO SCH (08:31)
--- NOTE | 2019-01-12 08:38 | PCMIDPN ---
Assessment/Plan: Assessment/Plan: * Cervical epidural abscess with MSSA bacteremia: Blood culture show 2 of 2 sets with MSSA by PCR identification. Plans for incision and drainage of cervical epidural abscess in a.m. given prior receipt of Pradaxa. MRI of T and L-spine do not show other foci of infection. Continue nafcillin pending clearance of blood cultures with probable transition to cefazolin thereafter. Repeat blood cultures in a.m. to assess for clearing of bacteremia. TTE without overt evidence of endocarditis although limited study. Plan NICHOLAS if unable to clear bacteremia after source control obtained. PICC line will need to be changed at some point once clearance of bacteremia obtain given this was placed at time of active bacteremia. 01/12/19 08:36 01/12/19 08:41 Subjective: Patient is somnolent but arousable this a.m.. Nursing notes appropriate interaction when awake with significant pain still being present. Objective: Vital Signs Temp Pulse Resp BP Pulse Ox 36.8 C 81 14 106/71 98 01/12/19 08:00 01/12/19 08:31 01/12/19 08:00 01/12/19 08:31 01/12/19 08:00 Laboratory Results 01/12/19 05:10 01/12/19 05:10 01/11/19 01/12/19 01/13/19 05:59 05:59 05:59 Intake Total 921 1890 Output Total 1550 1450 Balance -629 440 ESR 110 MM/HR (0-30) H 01/10/19 15:30 C-Reactive Protein 268.3 mg/L (<10.0) H 01/10/19 19:51 Nafcillin # 2 Blood cultures 2/2 sets MSSA Thoracic and lumbosacral MRI without evidence of epidural abscess; epidural enhancement extends to T3 Transthoracic echocardiogram without overt evidence of endocarditis although limited study - Physical Exam General Appearance: non-toxic, other (Somnolent), No apparent distress EENT: other (Exophthalmos present), No scleral icterus, No conjunctival petechiae Respiratory: lungs clear, No respiratory distress Cardiac/Chest: regular rate, rhythm, No systolic murmur Extremities: other (Mild edema over left anterior cabrales without active cellulitis ) Abdomen: non-tender, No distended Skin: No embolic lesions - Line/s LUE PICC Lines: No drainage, No erythema ICD10 Worksheet Patient Problems: Problems Problem Status Onset Abscess in epidural space of cervical spine Acute
[2019-01-12] MEDS: METHOCARBAMOL 750 MG TAB PO SCH ×3 (08:39→21:53)
[2019-01-12] MEDS ORDERED: traMADol 50 MG TAB PO PRN (11:50)
[2019-01-12] MEDS ORDERED: PROTOCOL POTASSIUM 1 DOSE MISC PRN (11:54)
[2019-01-12] MEDS ORDERED: PROTOCOL MAGNESIUM 1 DOSE IV PRN (11:54)
--- NOTE | 2019-01-12 11:59 | HOSPPROG ---
Hospitalist Progress Note Assessment/Plan: #Epidural Cervical Mass with Mod/Severe spinal stenosis #MSSA Bacteremia #Buttock pain, left hip pain #Afib, currently in SR #Chronic AC #ETOH abuse #Acute Encephalopathy, metabolic #Hyponatremia, low since early January of 2019 #Grave disease on Methimazole, Thyroid function testing ok #CHF #Hypotension Plan: -ID following, Nafcillin -Pain mgtmt: Precedex drip per NSG. Muscle relaxant per NSG. Will also increase Gabapentin and Tramadol. Dilaudid IV PRN. Hoping to avoid over sedation -Volume looks euvolemic. Given Hypotension, will decrease Lasix, stop Spironolactone, hold Cozaar -Na is stable. She doesn't look dehydrated or with volume overload. Urine studies likely with SiADH but on diuretics. Will fluid restrict. recheck Na in a.m. -check hip xr -I&D tomorrow -Holding Pradaxa Subjective: pain is well controlled earlier. However, per nursing report she has been having substantial intermittent pain. Objective: Vital Signs Temp Pulse Resp BP Pulse Ox 36.9 C 72 16 83/53 L 95 01/12/19 10:00 01/12/19 10:00 01/12/19 10:00 01/12/19 10:00 01/12/19 10:00 Laboratory Results 01/12/19 05:10 01/12/19 05:10 01/11/19 01/12/19 01/13/19 05:59 05:59 05:59 Intake Total 921 1890 360 Output Total 1550 1450 Balance -629 440 360 - Physical Exam Constitutional: no apparent distress Eyes: PERRL, EOMI Ears, Nose, Mouth, Throat: moist mucous membranes, hearing normal Cardiovascular: regular rate and rhythym, No edema Respiratory: no respiratory distress, no rales or rhonchi, clear to auscultation Gastrointestinal: normoactive bowel sounds, soft, non-tender abdomen Skin: warm Musculoskeletal: generalized weakness Neurologic: AAOx3, sensation intact bilaterally, weakness Psychiatric: interacting appropriately, not anxious, not encephalopathic Lymph, Heme, Immunologic: No petechiae ICD10 Worksheet Patient Problems: Problems Problem Status Onset Abscess in epidural space of cervical spine Acute
--- NOTE | 2019-01-12 15:39 | PDINTPN ---
Program Rep Progress Note Assessment/Plan: Assessment: Cervical epidural abscess: With moderate-severe cervical stenosis. Blood cultures positive for MSSA. On nafcillin per ID. Pain fairly well controlled most of the time, currently off Precedex, but at times we can't with severe pain , but more so in the hip than the neck today Hyponatremia: Improved. Likely SIADH. Hip pain: Had a fall a few weeks ago. Atrial fibrillation: Currently in sinus rhythm. On Pradaxa at admission, now held Plan: Continue fluid restriction. Dilaudid p.r.n. Pain, with Precedex being used as needed. Continue antibiotics per ID. Hold Pradaxa. Anticipate surgery by Dr. Resendiz on Sunday. Await results of hip x-ray. 01/12/19 15:40 01/12/19 15:41 Subjective: Sleeping but arousable. Complains of hip pain when awakened. Objective: Vital Signs Temp Pulse Resp BP Pulse Ox 37.1 C 74 18 93/49 L 96 01/12/19 14:00 01/12/19 14:00 01/12/19 14:00 01/12/19 14:00 01/12/19 14:00 Laboratory Results 01/12/19 05:10 01/12/19 05:10 01/11/19 01/12/19 01/13/19 05:59 05:59 05:59 Intake Total 921 1890 360 Output Total 1550 1450 Balance -629 440 360 Microbiology 01/10/19 19:51 Blood Blood Panel (PCR) - Final S.aureus Methicillin Suscept. 01/10/19 19:51 Blood Blood Culture - Preliminary 01/10/19 19:51 Blood Staphylococcus Aureus Physical Exam - Physical Exam General Appearance: no apparent distress, No alert EENT: normal ENT inspection Neck: normal inspection Respiratory: lungs clear, normal breath sounds Cardiac/Chest: regular rate, rhythm, No edema Abdomen: non-tender, soft Skin: normal color, warm/dry Extremities: normal inspection Neuro/Psych: No alert (Somnolent but arousable) ICD10 Worksheet Patient Problems: Problems Problem Status Onset Abscess in epidural space of cervical spine Acute
--- NOTE | 2019-01-12 15:59 | GHP ---
[f rep st] HISTORY AND PHYSICAL DATE OF ADMISSION: 01/10/2019 REFERRING PHYSICIAN: Efrain Mccall MD PULMONARY/CRITICAL CARE CONSULTATION: REASON FOR REFERRAL: Evaluation and management of encephalopathy and pain. HISTORY OF PRESENT ILLNESS: Ms. Vallejo is a 58-year-old woman with a history of atrial fibrillation, alcoholism, and hyperthyroidism. She was admitted to the hospital yesterday with increasing cervica l pain, as well as some fevers, chills and sweats. She was seen in the emergency department a few da ys earlier and had a CT angiogram of the neck, which was unremarkable, as was CT scan of the chest. She also had some left buttock pain. She had an MRI at the time of admission, which demonstrated a c ervical epidural abscess. She has continued to report significant pain here in the ICU, despite the use of Dilaudid. PAST MEDICAL HISTORY: 1. Atrial fibrillation. 2. Congestive heart failure. 3. Alcoholism. 4. Hyperthyroidism. 5. History of breast cancer. MEDICATIONS: At the time of admission included methimazole, tramadol, dabigatran, spironolactone, me toprolol, losartan, furosemide, and flecainide. ALLERGIES: Antihistamines. SOCIAL HISTORY: The patient has a history of tobacco and alcohol abuse. FAMILY HISTORY: Unremarkable. REVIEW OF SYSTEMS: A 10-point review of systems is difficult to obtain completely, as the patient is either somnolent or complaining of significant pain, and not amenable to an interview. PHYSICAL EXAMINATION: GENERAL: The patient is intermittently either sleeping or wakes up complainin g of severe pain in her neck. VITAL SIGNS: Blood pressure is 132/73 with a heart rate of 83. She i s afebrile, oxygen saturations 99% on 3 L. HEENT: Normocephalic and atraumatic. No icterus. NECK: No JVD. Trachea is midline. CHEST: Clear to auscultation. CARDIAC: Regular rate and rhythm wit hout murmur. ABDOMEN: Soft, nontender. Bowel sounds are present. EXTREMITIES: No clubbing, cyano sis, or edema. NEURO: The patient is mostly somnolent, intermittently agitated and complaining of p ain. She moves all extremities equally. LABORATORY DATA: White blood count is 14.5 with hemoglobin of 12.9. Chemistry group shows a sodium of 120. Chest x-ray demonstrates some atelectasis. Images reviewed by me. ASSESSMENT: 1. Cervical epidural abscess. The patient has no specific risk factors for this. There is some mod erate to severe spinal stenosis, and the patient is having significant pain. She has been on Dilaudi d, and is now starting Precedex. 2. Hyponatremia. This could contribute to the patient's somnolence/apparent confusion. This could be related to SIADH from pain, and/or poor p.o. intake. She is currently receiving normal saline. 3. Encephalopathy. This could be due to the pain/pain medications, hyponatremia, alcohol or alcohol withdrawal. RECOMMENDATIONS: 1. Continue vancomycin and ceftriaxone per ID. 2. Continue Dilaudid and Precedex. 3. Sodiums will be followed closely. 4. Keep in the ICU. 5. Hold Pradaxa. 6. Anticipate surgical debridement on Sunday01/13/2019. /[id number]/MODL
[2019-01-12] MEDS: NS 1,000 ML IV SCH ×2 (17:43→21:51)
[2019-01-12] MEDS ORDERED: NS 250 ML IV ONE ×2 (19:00→20:00)
[2019-01-12] MEDS ORDERED: NS 1,000 ML IV ONE (20:21)
[2019-01-12] MEDS: MELATONIN 3 MG TAB PO SCH (21:53)
[2019-01-12] MEDS: NOREPINEPHRINE BITARTRATE 4 MG in NS 500 ML IV SCH (21:54)
[2019-01-12] MEDS ORDERED: NOREPINEPHRINE BITARTRATE 4 MG in NS 500 ML IV SCH (22:00)
[2019-01-13] MEDS: NAFCILLIN SODIUM 2 GM in D5W 100 ML IV SCH ×3 (04:06→10:50)
[2019-01-13 05:09] LABS: PLATELET COUNT 261 10^3/uL (150-400)
[2019-01-13] MEDS: ACETAMINOPHEN 500 MG TAB PO SCH ×3 (06:15→21:37)
[2019-01-13] MEDS ORDERED: THROMBIN (BOVINE) 5,000 UNIT VIAL TP ONE (06:56)
[2019-01-13] MEDS ORDERED: DEPO METHYLPREDNISOLONE 40 MG/ML SDV ONE (06:56)
[2019-01-13] MEDS ORDERED: BUPIVACAINE/EPI 0.25% 30 ML SDV ONE (06:56)
[2019-01-13] MEDS ORDERED: CHLORHEXIDINE GLUC HIBICLENS 118 ML BTL TP ONE (06:56)
[2019-01-13] MEDS ORDERED: BACITRACIN 50,000 UNITS/10 ML SYR IRR ONE (06:57)
--- NOTE | 2019-01-13 07:23 | NEUSURGPN ---
Assessment/Plan: A: 58 yo female with cervical and para cervical abscess. p: -MRI T and L spine performed as well due to hip and abdominal pain and no other signs of abscess found. Some epidural enhancement down to T3 but no other abscess -Now complaining a lot of buttocks pain. We do not have any imaging of this region and her Cr. is high this morning but recommend if not getting better to image this as well to look for other abscess -On IV abx per ID -To OR this morning for C4-5 lami for washout of epidural abscess -Requiring pressors overnight- will need to likely continue care in ICU postop. -Repeat Blood cxs taken yesterday and still pending -Optimize pain management- will try muscle relaxant for low back/hip pain -Discussed with S: Patient with decrease in neck pain this morning overall and now mostly suffering from some left buttocks pain. Denies any weakness, pain in arms or legs. Per RN was able to get up to the bedside commode last night without much assist. O: Somnolent but arousable, quickly falls asleep after performing commands but alert to person, situation, place, year NAD, VSS CN II-XII grossly intact PERRL, EOMI BUE 5/5 Negative Hoffmans bilaterally BLE 5/5= ( has a lot of pain during exam of BLE from buttocks pain SILT - Physician Discussed Patient with Dr.: Resendiz Patient Seen by Dr.: Resendiz Neurosurgery Physical Exam - Vitals, I&O, Labs I and O 01/12/19 01/13/19 01/14/19 05:59 05:59 05:59 Intake Total 1890 3188 Output Total 1450 750 Balance 440 2438 Weight 80.2 kg Intake: Oral (ml) 610 990 IV Intake (ml) 530 250 IV Infused (ml) 750 1948 Dexmedetomidine HCl 400 0 mcg In Ns 100 ml @ Titrate IV CONT ESTHER Rx#: [id number] Norepinephrine Bitartrate 246 4 mg In Ns 500 ml @ Per Protocol IV CONT ESTHER Rx#: [id number] Ns 1,000 ml @ 100 mls/hr 750 IV CONT ESTHER Rx#: [id number] Ns 1,000 ml @ 20 mls/hr 1702 IV CONT ESTHER Rx#: [id number] Output: Urine (ml) 1450 750 Catheter 1450 750 Other: Number of Stools Bedpan 0 0 Bedside Commode 1 Catheter 0 Vital Signs Temp Pulse Resp BP Pulse Ox 36.7 C 78 13 108/83 H 94 01/13/19 05:56 01/13/19 06:00 01/13/19 06:00 01/13/19 06:00 01/13/19 06:00 Laboratory Results 01/13/19 04:45 01/13/19 04:45 ICD10 Worksheet Patient Problems: Problems Problem Status Onset Abscess in epidural space of cervical spine Acute
[2019-01-13] MEDS ORDERED: fentaNYL 100 MCG/2 ML INJ ONE ×2 (07:30→09:28)
[2019-01-13] MEDS ORDERED: REMIFENTANIL HCL 1 MG VIAL ONE (07:30)
[2019-01-13] MEDS ORDERED: PROPOFOL/EMULSION 500 MG/50 ML BOTTLE IV ONE (07:31)
--- NOTE | 2019-01-13 08:25 | PDANEPAE ---
ANE History of Present Illness 58 yo for post cervical lami for abscess septic on norepi ANE Past Medical History - Cardiovascular History Hx Arrhythmias: Yes Hx CHF / Valvular Disease: Yes - Pulmonary History Hx Oxygen in Use at Home: No Hx Sleep Apnea: No Sleep Apnea Screening Result - Last Documented: Positive - Endocrine History Hx Diabetes: No ANE Review of Systems Review of Systems: - Exercise capacity METS (RN): 3 METS ANE Patient History - Allergies Allergies/Adverse Reactions: antihistamines Allergy (Uncoded 07/28/11 21:06) - Home Medications Home Medications: Methimazole [Tapazole 5MG (*)] 5 mg PO DAILY 07/28/11 [Last Taken 01/10/19] Dabigatran Etexilate Mesyl [Pradaxa 150 MG (*)] 150 mg PO BID 01/10/19 [Last Taken 01/10/19] Flecainide Acetate 50 mg PO BID 01/10/19 [Last Taken 01/10/19] Furosemide [Lasix 20 MG (*)] 20 mg PO BID@07,16 01/10/19 [Last Taken 01/10/19] Losartan Potassium [Cozaar 25 mg (*)] 12.5 mg PO DAILY 01/10/19 [Last Taken 06/21] Metoprolol Succinate 200 mg PO DAILY 01/10/19 [Last Taken 01/10/19] Spironolactone [Aldactone 25 MG (*)] 12.5 mg PO DAILY 01/10/19 [Last Taken 01/10] traMADol [Ultram 50 mg (*)] 50 mg PO BID 01/10/19 [Last Taken 01/10/19] - NPO status NPO Status: no food or drink >8 hours NPO Since - Liquids (Date): 01/13/19 NPO Since - Liquids (Time): 00:00 NPO Since - Solids (Date): 01/13/19 NPO Since - Solids (Time): 00:00 - Smoking Hx Smoking Status: Heavy smoker ANE Labs/Vital Signs - Labs Result Diagrams: 01/13/19 04:45 01/13/19 04:45 - Vital Signs Blood Pressure: 108/83 Heart Rate: 78 Respiratory Rate: 13 O2 Sat (%): 94 Height: 5 ft 6 in Weight: 80.2 kg ANE Physical Exam - Airway Neck exam: FROM Mallampati Score: Class 2 Mouth exam: normal dental/mouth exam - Pulmonary Pulmonary: no respiratory distress - Cardiovascular Cardiovascular: regular rate and rhythym - ASA Status ASA Status: III, E ANE Anesthesia Plan Anesthesia Plan: general endotracheal anesthesia Lines/Monitors: arterial line Specialized Airway: video laryngoscope Urgent/Emergent Case: Santy mims completed preop but documented later for safe timely pt care
[2019-01-13] MEDS ORDERED: VANCOMYCIN 1 GM VIAL ONE (08:59)
[2019-01-13] MEDS ORDERED: FUROSEMIDE 20 MG TAB PO SCH (09:00)
[2019-01-13] MEDS ORDERED: ONDANSETRON 4 MG/2 ML VIAL ONE (09:27)
[2019-01-13] MEDS ORDERED: ROCURONIUM 50 MG/5 ML VIAL ONE (09:27)
[2019-01-13] MEDS ORDERED: LACTULOSE 20 GM/30 ML UDCUP PO PRN (10:27)
[2019-01-13] MEDS ORDERED: fentaNYL 100 MCG/2 ML INJ IVP PRN (10:27)
[2019-01-13] MEDS ORDERED: NALOXONE HCL 0.4 MG/ML INJ IVP PRN ×2 (10:27→11:12)
[2019-01-13] MEDS ORDERED: MAGNESIUM HYDROXIDE 30 ML UDCUP PO PRN (10:27)
[2019-01-13] MEDS ORDERED: BISACODYL 10 MG SUPP PR PRN (10:27)
[2019-01-13] MEDS ORDERED: POLYETHYLENE GLYCOL 3350 17 GM PKT PO PRN (10:27)
[2019-01-13] MEDS ORDERED: HYDROmorphONE/DILAUDID 1 MG/ML INJ IVP PRN (10:27)
--- NOTE | 2019-01-13 10:27 | POSTANESTH ---
Post Anesthetic Evaluation Cardiovascular Status: Normal, Stable Respiratory Status: Normal, Stable Level of Consciousness/Mental Status: Can Participate in Eval Pain Control: Adequate, Prn Tx Ordered Nausea/Vomiting Control: Adequate, Prn Tx Ordered Complications Possibly Related to Anesthesia: None Noted
--- NOTE | 2019-01-13 10:27 | POSTOPPROG ---
Post Op Note Date of Operation: 01/13/19 Surgeon: Michael Resendiz [employer] Mechanical Engineer: Rachna Scott PA-C (Augie) Anesthesia: GET(General Endotracheal) Pre-op Diagnosis: Cervical epidural abscess Post-op Diagnosis: same Procedure: Right sided C4/5 hemilaminectomy for washout of epidural abscess Inf/Abcess present in the surg proc area at time of surgery?: No Depth: Organ Space EBL: 50-100 Complications: None observed. SOAP Progress Note Assessment/Plan: S: Patient back in ICU. Stable and waking up with expected incisional neck pain O: Waking up, uncomfortable, in pain NAD, VSS CN II-XII grossly intact PERRL, EOMI BUE 5/5 Negative Hoffmans bilaterally BLE 5/5= SILT A: 58 yo female sp right C4-5 hemilaminectomy for washout of epidural abscess. During surgery, no real abscess visualized. Possible that this went away with abx last two days while waiting for surgery. Paracervical muscle explired as well in area of surgery and could not get any genevieve pus for culture. Swab was sent from epidural space even though no pus visualized. Vanco powder placed in wound prior to closing P: -Admit back to ICU -Follow Blood cxs -Follow intraop cx -Optimize pain management -If still has buttocks pain would recommend CT in that area to rule out abscess there -May want to repeat Cervical MRI as well -Crit care managing BP -ID managing abx -Call with any changes in exam -Advance diet as tolerated to regular 01/13/19 10:21 Objective: Vital Signs Temp Pulse Resp BP Pulse Ox 36.7 C 78 13 108/83 H 94 01/13/19 05:56 01/13/19 08:25 01/13/19 08:25 01/13/19 08:25 01/13/19 08:25 Laboratory Results 01/13/19 04:45 01/13/19 04:45 01/12/19 01/13/19 01/14/19 05:59 05:59 05:59 Intake Total 1890 3188 Output Total 1450 750 Balance 440 2438
[2019-01-13] MEDS: HYDROmorphONE/DILAUDID 1 MG/ML INJ IVP PRN (10:30)
[2019-01-13] MEDS: GABAPENTIN 300 MG CAP PO SCH ×3 (10:52→21:39)
[2019-01-13] MEDS: METHOCARBAMOL 750 MG TAB PO SCH ×3 (10:52→21:39)
[2019-01-13] MEDS: traMADol 50 MG TAB PO SCH ×2 (10:52→21:37)
[2019-01-13] MEDS ORDERED: morphINE PCA 30 MG/30 ML PCA IV PRN (11:12)
[2019-01-13] MEDS: DEXMEDETOMIDINE HCL 400 MCG in NS 100 ML IV SCH (11:29)
[2019-01-13] MEDS: NOREPINEPHRINE BITARTRATE 4 MG in NS 500 ML IV SCH (11:43)
--- NOTE | 2019-01-13 12:15 | GOP ---
[f rep st] OPERATIVE REPORT DATE OF OPERATION: 01/13/2019 SURGEON: Michael Resendiz MD STRATEGIC ADVISOR: Rachna Scott PA-C (Mirabella) ANESTHESIA: General endotracheal. PREOPERATIVE DIAGNOSIS: Cervical epidural abscess with severe canal stenosis. POSTOPERATIVE DIAGNOSIS: Cervical epidural abscess with severe canal stenosis. PROCEDURE PERFORMED: 1. Right C4, C5 hemilaminotomies. 2. Evacuation of epidural phlegmon/abscess. 3. Use of intraoperative ultrasound. 4. Use of the operative microscope. 5. Intraoperative neurophysiologic monitoring, including somatosensory-evoked potentials and motor-e voked potentials. FINDINGS: SPECIMENS: Right C4-5 epidural abscess for cultures. ESTIMATED BLOOD LOSS: 50 mL. INDICATIONS: The patient presented about 3 days ago with severe neck pain and signs of infection. S he was admitted to the hospital and an MRI of the cervical, thoracic, and lumbar spine revealed a rel atively small, but somewhat compressive epidural abscess in the cervical spine on the right side at C 4-5. There was severe canal stenosis at this level. There also appeared to be a large epidural absc ess in out in the paraspinous muscles on the right side. She was on Pradaxa, so we delayed her surge ry for a couple of days, but ultimately we have now decided to proceed. Her blood cultures have been growing MSSA and she has been on nafcillin. DESCRIPTION OF PROCEDURE: After informed consent was obtained from the patient, the patient was brou ght to the operating room and was placed in supine position on the transport cart. A formal time-out was performed identifying the patient by name, medical record number, and date of . Preoperati ve antibiotics were given. The endotracheal tube was placed and general endotracheal anesthesia was smoothly induced. The patient's head was placed on the Farr pins. She was turned to the prone p osition on the Kodi table. All appropriate pressure points were padded and checked. The level of the incision was localized using a lateral x-ray and a midline cervical incision was marked. The ne ck was then prepped and draped in the normal sterile fashion. Baseline motor-evoked potentials and s omatosensory-evoked potentials were normal. The skin incision was then made using a 10 blade and the subcutaneous tissues were dissected using monopolar electrocautery. The fascia was opened in the mi dline and the spinous processes of C4 and C5 were identified. The paraspinous muscles were taken danika n from the spinous process and lamina on the right side at C4-5. Again, our position was confirmed u sing a lateral radiograph. At this point, a high-speed drill was used to drill down the inferior saeed cristobal of C4 and the superior lamina of C5. Some phlegmon tissue which appeared inflamed was visualized and the operative microscope was then brought into the field and the remainder of the procedure was performed under high-power magnification. We were able to remove the lamina further laterally toward the facet joints, but care was taken not to interrupt the facet capsule. A Kerrison punch was then used to widen the laminectomy superiorly and inferiorly as well as medially. The dura was identified and some of this inflamed fatty tissue and phlegmon was removed. There was no obvious purulent liqu id material that could be drained. This was carefully then washed using bacitracin irrigation and a piece of Gelfoam was placed over the dura. Intraoperative ultrasound was then used to look into the paraspinous muscles. There appeared to be a small fluid collection and this was carefully explored u sing bipolar electrocautery and blunt dissection. I was never able to localize a large fluid collect ion in this area; although, there was again some inflamed tissue. A small swab was taken from the ar ea of the dura when the phlegmon was seen, but I did not see anything out in the paraspinous muscles that could be cultured. This inflamed tissue was not removed as it did not appear to be overtly path ologic. At this point, the wound was copiously irrigated using bacitracin irrigation. All bleeding was controlled using bipolar electrocautery. A gram of vancomycin powder was then placed in the woun d and the fascia was closed in the midline using interrupted 0 Vicryls. Deep dermis was closed using interrupted 2-0 Vicryls and the skin was closed using Steri-Strips. All neurophysiologic monitoring remained stable throughout the case. There were no intraoperative complications. I was scrubbed and present for the entire procedure. All sponge and needle counts were correct at the end of the case. FLUIDS AND URINE OUTPUT: Per the Anesthesia record. /[id number]/MODL
[2019-01-13] MEDS: FLECAINIDE ACETATE 100 MG TAB PO SCH ×2 (12:39→21:35)
[2019-01-13] MEDS: METHIMAZOLE 5 MG TAB PO SCH (12:40)
[2019-01-13] MEDS: METOPROLOL SUCCINATE XR 100 MG TAB PO SCH (12:40)
--- NOTE | 2019-01-13 12:44 | PDINTPN ---
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 Status post cervical surgery yesterday but definitive abscess not found. Cultures of the area is pending. Blood cultures positive for MSSA. On nafcillin per ID. Cervical pain is better postoperative. Hip pain: Had a fall a few weeks ago. This is the patient's primary complaint. Has fairly severe pain. Etiology is unclear. May be related to her fall but pain not severe on admission. Metastatic foci of infection, possibly a septic joint needs to be investigated. CT scan of the hip/pelvis ordered. Pain control. Very sensitive to narcotics. Easily over sedated. Trying MS WATER TREATMENT TECHNICIAN currently. On low-dose Precedex. Hypotension: On Levophed to maintain adequate blood pressures. CVP approximately 6. Will increase IV fluids Atrial fibrillation: Currently in sinus rhythm. On Pradaxa at admission, now held. Hyponatremia: Sodium stable at 127. Likely SIADH. Plan: Continue fluid restriction. D/C Dilaudid p.r.n. Add morphine sulfate WATER TREATMENT TECHNICIAN. Continue low-dose Precedex if needed. CT of the right hip/pelvis area today. Continue antibiotics per ID. To continue to hold Pradaxa. Anticipate surgery by Dr. Resendiz on Sunday. Await results of hip x-ray. Subjective: Primary complaint is that of hip pain. Primary complaint is that of hip pain with movement. Neck pain present postoperatively, but better. Objective: Vital Signs Temp Pulse Resp BP Pulse Ox 35.6 C L 83 16 105/55 L 88 L 01/13/19 11:48 01/13/19 12:40 01/13/19 11:48 01/13/19 12:40 01/13/19 11:48 Laboratory Results 01/13/19 04:45 01/13/19 04:45 01/12/19 01/13/19 01/14/19 05:59 05:59 05:59 Intake Total 1890 3188 Output Total 1450 750 Balance 440 2438 Laboratory Tests 01/13/19 01/13/19 04:45 11:10 Calcium 8.0 L Magnesium 2.1 Ur Random Sodium 52 Ur Random Urea Nitrogn 323.0 Next swallow up spending. CT scan of the right hip/pelvis pending. Physical Exam - Physical Exam General Appearance: other (Somnolent secondary to medications) EENT: PERRL/EOMI, exophthalmia, other (Nasal cannula in place at 4 L) Neck: other (Postop cervical surgery, not examined) Respiratory: lungs clear (Anteriorly), decreased breath sounds (At bases), rhonchi (Rhonchi present with cough), No wheezing Cardiac/Chest: regular rate, rhythm, No gallop Abdomen: normal bowel sounds, non-tender, soft Pelvic Exam: other (Rust catheter in place, input greater than output) Skin: normal color, warm/dry Extremities: No pedal edema Neuro/Psych: no motor/sensory deficits, No cognition abnormalities (Sedated secondary to medications) ICD10 Worksheet Patient Problems: Problems Problem Status Onset Abscess in epidural space of cervical spine Acute
--- NOTE | 2019-01-13 12:47 | HOSPPROG ---
Hospitalist Progress Note Assessment/Plan: 58yo F with chronic afib on AC, Graves disease presented with neck pain found to have cervical epidural abscess and bacteremia. Course complicated by uncontrolled pain, MILES, encephalopathy. #C4-5 epidural abscess with resultant cord compression - S/p evacuation of epidural phlegmon by Dr Resendiz 01/13 however no significant paraspinous fluid collection visualized (this was noted on MRI report) - Follow up intra-op cultures #Left hip pain - Non-contrasted hip CT #MSSA bacteremia - Repeat cultures drawn this AM (01/13). If remain negative, replace PICC - If cultures not clearing, consider NICHOLAS - ID following. Switching nafcillin to cefazolin d/t renal fxn #MILES: ? due to hypotension vs abx related. 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 - Holding lasix, metoprolol, losartan - Levophed PRN to maintain MAP>65 #Chronic atrial fibrillation: Rates controlled. [id number] or 3. - Holding AC (pradaxa) with surgery - Continue flecainide #Acute metabolic/toxic encephalopathy: Due to infection and meds #Acute/subacute hyponatremia: C/w SIADH. Stable - Continue fluid restriction #Graves disease: Thyroid studies ok. Continue methimazole. #? h/o CHF: Not volume overloaded. VTE ppx: LMWH Code: full Dispo: Remain inpatient in ICU Subjective: Hypotensive yesterday evening. Didn't respond to fluid bolus so started on levophed. Severe, intermittent pain that is worst at left hip. Per RN, falls asleep after a does of dilaudid. Underwent right C4-5 laminectomy and evacuation of epidural abscess this AM. Objective: Vital Signs Temp Pulse Resp BP Pulse Ox 35.6 C L 83 16 105/55 L 88 L 01/13/19 11:48 01/13/19 12:40 01/13/19 11:48 01/13/19 12:40 01/13/19 11:48 Laboratory Results 01/13/19 04:45 01/13/19 04:45 01/12/19 01/13/19 01/14/19 05:59 05:59 05:59 Intake Total 1890 3188 Output Total 1450 750 Balance 440 2438 - Physical Exam Constitutional: chronically ill appearing, obese Eyes: PERRL, anicteric sclera, EOMI Ears, Nose, Mouth, Throat: moist mucous membranes, hearing normal, ears appear normal, no oral mucosal ulcers Cardiovascular: regular rate and rhythym, no murmur, rub, or gallop, No edema Respiratory: no respiratory distress, no rales or rhonchi, clear to auscultation Gastrointestinal: normoactive bowel sounds, soft, non-tender abdomen, no palpable masses Genitourinary: cameron in urethra Skin: no rashes or abrasions, no fluctuance, no induration Musculoskeletal: generalized weakness Neurologic: other (arousable, not oriented (had just received morphine)) ICD10 Worksheet Patient Problems: Problems Problem Status Onset Abscess in epidural space of cervical spine Acute
--- NOTE | 2019-01-13 16:07 | PCMIDPN ---
Assessment/Plan: Assessment: Septic shock secondary to MSSA bacteremia. MRI of the cervical spine revealed a well-circumscribed fluid lesion consistent with an epidural abscess at the posterior aspect of C4. Surgery today did not reveal any significant collection. Patient continues to have ongoing hypotension which overnight required the introduction of vasopressin. She also continues to complain of severe left buttock and hip pain. We will CT the hip today without contrast ( due to the worsening acute renal failure). Suspect that she may have multiple foci of MSSA disease. Will switch the antibiotic from nafcillin to cefazolin considering the delta change in creatinine clearance. Plan: 1. Discontinue nafcillin and start cefazolin 1 g IV q.8 owing to worsening creatinine. 2. Follow repeat blood cultures. 3. Agree with CT of the left hip/pelvis to look for signs of fluid collection or joint effusion. 01/13/19 16:07 Subjective: Patient is resting postoperatively in her hospital bed in the ICU. She is quite somnolent at this time. Blood pressure regulated by vasopressin currently. No other new events except for her return from the operating room where no epidural collection was located. Objective: Nafcillin # 3 Vital Signs Temp Pulse Resp BP Pulse Ox 36.7 C 88 18 104/56 L 92 01/13/19 14:27 01/13/19 14:27 01/13/19 14:27 01/13/19 14:27 01/13/19 14:27 Laboratory Results 01/13/19 04:45 01/13/19 04:45 01/12/19 01/13/19 01/14/19 05:59 05:59 05:59 Intake Total 1890 3188 240 Output Total 1450 750 Balance 440 2438 240 ESR 110 MM/HR (0-30) H 01/10/19 15:30 C-Reactive Protein 268.3 mg/L (<10.0) H 01/10/19 19:51 - Physical Exam General Appearance: WD/WN, no apparent distress, toxic Respiratory: lungs clear, normal breath sounds, No respiratory distress Cardiac/Chest: regular rate, rhythm, No tachycardia Extremities: non-tender, normal inspection Skin: normal color, warm/dry, No rash ICD10 Worksheet Patient Problems: Problems Problem Status Onset Abscess in epidural space of cervical spine Acute
[2019-01-13] MEDS: SENNOSIDES/DOCUSATE SODIUM TAB PO SCH ×2 (16:11→21:35)
[2019-01-13] MEDS ORDERED: POTASSIUM CL 10 MEQ TAB PO ONE (20:19)
[2019-01-13] MEDS: MELATONIN 3 MG TAB PO SCH (21:35)
[2019-01-14] MEDS: NOREPINEPHRINE BITARTRATE 4 MG in NS 500 ML IV SCH (01:50)
[2019-01-14] MEDS ORDERED: NS 500 ML IV ONE (04:22)
[2019-01-14] MEDS: ACETAMINOPHEN 500 MG TAB PO SCH ×3 (07:03→22:28)
--- NOTE | 2019-01-14 07:14 | HOSPPROG ---
Hospitalist Progress Note Assessment/Plan: Hospitalist night float note Patient with some sinus tachycardia in the 120s overnight shortly after Levophed was initiated for hypotension. Levophed is now being titrated down slowly. This was not fluid responsive but was given a bolus of 500 cc. Patient is not on IV fluid support due to history of CHF. She has been without any respiratory distress or hypoxia overnight. Lovenox is due to start later today. Review of patient's chart shows that she has a mild anemia without any evidence of active bleeding. The she does have history of Graves but her TFTs were within acceptable limits. She does have a history of atrial fibrillation but currently in sinus tach. She is due to receive flecainide later this morning. Metoprolol was held last evening due to patient's development of hypotension. Status post I&D for epidural abscess but at this time appears comfortable and pain appears to be controlled. Tachycardia possibly secondary to pressor support versus sepsis and shock. Blood pressures are improving with decreasing requirement for Levophed. No additional rate control due to risk of worsening hypotension for now. Patient currently down to 1 dalia of Levophed. Objective: Vital Signs Temp Pulse Resp BP Pulse Ox 37.5 C 128 H 18 115/49 L 93 01/14/19 05:38 01/14/19 05:38 01/14/19 05:38 01/14/19 05:38 01/14/19 04:00 Microbiology 01/13/19 09:00 Gram Stain - Final Neck - Eswab Laboratory Results 01/14/19 04:20 01/14/19 04:20 01/13/19 01/14/19 01/15/19 05:59 05:59 05:59 Intake Total 3822 3622 Output Total 750 1950 Balance 2431 4215 ICD10 Worksheet Patient Problems: Problems Problem Status Onset Abscess in epidural space of cervical spine Acute
[2019-01-14] MEDS: ENOXAPARIN 40 MG/0.4 ML SYR SC SCH (08:08)
[2019-01-14] MEDS: traMADol 50 MG TAB PO SCH ×2 (08:08→21:08)
[2019-01-14] MEDS: METHOCARBAMOL 750 MG TAB PO SCH ×3 (08:09→21:09)
[2019-01-14] MEDS: FLECAINIDE ACETATE 100 MG TAB PO SCH ×2 (08:09→21:07)
[2019-01-14] MEDS: METHIMAZOLE 5 MG TAB PO SCH (08:09)
[2019-01-14] MEDS: SENNOSIDES/DOCUSATE SODIUM TAB PO SCH ×2 (08:10→21:08)
[2019-01-14] MEDS: GABAPENTIN 300 MG CAP PO SCH ×3 (08:10→21:09)
--- NOTE | 2019-01-14 08:30 | NEUSURGPN ---
Date of Surgery: 01/13/19 Post Op Day: 1 Assessment/Plan: Assessment: 58 yo female s/p right C4-5 hemilaminectomy for washout of epidural abscess. POD #1 (During surgery, no real abscess visualized. Possible that this went away with abx last two days while waiting for surgery. Paracervical muscle explored as well in area of surgery and could not get any genevieve pus for culture. Swab was sent from epidural space even though no pus visualized. Vanco powder placed in wound prior to closing) P: -Continue with ICU -Follow Blood cxs -Follow intraoperative cx as well -Optimize pain management -If still has buttocks pain would recommend CT in that area to rule out abscess there -Plan to repeat cervical spine MRI in 2-3 weeks -Crit care managing BP-appreciate their input -ID managing abx-appreciate their input and care as well -Call with any changes in exam -Advance diet as tolerated to regular -call with any questions or concerns Subjective: Awake and alert. Sitting in chair. No rand/cp/sob/abd or gu complaints. Objective: Awake and alert. PERRLA/EOMI no droop CN 2-12 grossly intact CN II-XII grossly intact PERRLA, EOMI BUE 5/5= Negative Hoffmans bilaterally BLE 5/5= SILT Neuro Check Frequency: per routine Urinary Catheter in Place: Yes Urinary Catheter Indication: Surgical Requirement - Physician Discussed Patient with : Astrid Patient Seen by : Astrid Neurosurgery Physical Exam - Vitals, I&O, Labs I and O 01/13/19 01/14/19 01/15/19 05:59 05:59 05:59 Intake Total 3188 3622 Output Total 750 1950 Balance 2438 1672 Weight 91.6 kg Intake: Oral (ml) 990 1320 IV Intake (ml) 250 IV Infused (ml) 1948 2302 Dexmedetomidine HCl 400 0 38 mcg In Ns 100 ml @ Titrate IV CONT ESTHER Rx#: [id number] Norepinephrine Bitartrate 246 840 4 mg In Ns 500 ml @ Per Protocol IV CONT ESTHER Rx#: [id number] Ns 1,000 ml @ 20 mls/hr 1702 1424 IV CONT ESTHER Rx#: [id number] Output: Urine (ml) 750 1950 Catheter 750 1950 Other: Number of Stools Bedpan 0 Bedside Commode 1 Catheter 0 Microbiology 01/13/19 09:00 Gram Stain - Final Neck - Eswab Vital Signs Temp Pulse Resp BP Pulse Ox 37.2 C 124 H 15 115/66 96 01/14/19 08:00 01/14/19 08:00 01/14/19 08:00 01/14/19 08:00 01/14/19 08:00 Laboratory Results 01/14/19 04:20 01/14/19 04:20 ICD10 Worksheet Patient Problems: Problems Problem Status Onset Abscess in epidural space of cervical spine Acute
--- NOTE | 2019-01-14 09:02 | HOSPPROG ---
Hospitalist Progress Note Assessment/Plan: 58yo F with chronic afib on AC, Graves disease presented with neck pain found to have cervical epidural abscess and bacteremia. Course complicated by uncontrolled pain, MILES, encephalopathy. #C4-5 epidural abscess with resultant cord compression - S/p evacuation of epidural phlegmon (no abscess) by Dr Resendiz 01/13 however no significant paraspinous fluid collection visualized - Follow up intra-op cultures #Left hip and right shoulder pain: concern for metastatic foci of infection - CT w/contrast of these areas #MSSA bacteremia - Repeat cultures drawn 01/13. If remain negative at 48hrs, replace PICC - If cultures not clearing, consider NICHOLAS - ID following, continue cefazolin #MILES: Improving. 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 Related to infection vs meds vs tachycardia - Holding lasix, losartan - Levophed PRN to maintain MAP>65 #Post-op anemia: No e/o bleeding. Monitor. #Chronic atrial fibrillation: [id number] or 3. - Holding AC (pradaxa) with surgery - Continue flecainide #Acute metabolic/toxic encephalopathy: Resolved. Due to infection and meds #Acute/subacute hyponatremia: C/w SIADH. Stable - Continue fluid restriction #Graves disease: Thyroid studies ok. Continue methimazole. #? h/o CHF: Not volume overloaded. VTE ppx: LMWH Code: full Dispo: Remain inpatient in ICU Subjective: Became tachycardic to 120s last night with hypotension requiring restart of levophed. ECG reveals sinus tachyardia. Off levophed this AM. Off morphine COMMERCIAL PORTFOLIO MANAGER since early this AM as well. Doing quite a bit better from pain stand point. Sitting up in chair, eating breakfast. Still having significant left buttock and now right shoulder pain. Objective: Vital Signs Temp Pulse Resp BP Pulse Ox 37.2 C 124 H 15 115/66 96 01/14/19 08:00 01/14/19 08:00 01/14/19 08:00 01/14/19 08:00 01/14/19 08:00 Microbiology 01/13/19 09:00 Gram Stain - Final Neck - Eswab Laboratory Results 01/14/19 04:20 01/14/19 04:20 01/13/19 01/14/19 01/15/19 05:59 05:59 05:59 Intake Total 3189 3622 Output Total 803 1950 Balance 2433 1302 - Physical Exam Constitutional: no apparent distress, appears nourished, not in pain Eyes: other (exophthalmous) Ears, Nose, Mouth, Throat: moist mucous membranes, hearing normal, ears appear normal, no oral mucosal ulcers Cardiovascular: no murmur, rub, or gallop, tachycardia, No edema Respiratory: no respiratory distress, no rales or rhonchi, clear to auscultation Gastrointestinal: normoactive bowel sounds, soft, non-tender abdomen, no palpable masses Genitourinary: cameron in urethra Skin: no rashes or abrasions, no fluctuance, no induration Musculoskeletal: other (significant right shoulder ttp with weakness) Neurologic: AAOx3 Psychiatric: interacting appropriately ICD10 Worksheet Patient Problems: Problems Problem Status Onset Abscess in epidural space of cervical spine Acute
[2019-01-14] MEDS: ceFAZolin 2 GM/DEXTROSE 100 ML IV SCH ×3 (09:04→21:09)
[2019-01-14] MEDS: METOPROLOL TARTRATE 50 MG TAB PO SCH ×2 (09:54→21:08)
--- NOTE | 2019-01-14 10:31 | PCMIDPN ---
Assessment/Plan: 1. MSSA bacteremia with cervical epidural phlegmon status post washout: Appreciate neuro surgical assistance. Continue cefazolin as is. Repeat blood cultures negative at 24 hr! Need to convince ourselves she does not have septic arthritis of the right shoulder and left hip; agree with CT scans later today. PICC line ultimately needs to be changed moving forward once metastatic foci ruled out, blood cultures negative at a minimum of 48 hr. Of note, creatinine is back down to normal. Over 25 mins spent with her today. 01/14/19 10:35 Subjective: Events of last night noted; patient briefly placed on Levophed, which was weaned off this morning. Sitting up in a chair, talking with her friend, very loquacious and animated. Tells me that her right upper extremity is sore, as is her left buttock. She is scheduled for CT scans of these areas later today. No significant diarrhea on the antibiotics. No other real complaints. We talked about the pathogenesis of Staph aureus bacteremia. 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 January 13 neck culture rare Staph aureus January 10: Blood cultures x2 2/4 bottles MSSA T and L-spine MRI without obvious evidence of infection January 11 TTE: Poorly visualized valves, no obvious vegetations. Left hip x-ray without fluid or other abnormality - Physical Exam General Appearance: obese, other (Exopthalmos bilaterally, no petechiae ) EENT: pharynx normal, No thrush Respiratory: lungs clear Neck: other (There is a dressing in place with a Tegaderm, it is saturated with dried blood) Cardiac/Chest: tachycardia, other (I cannot appreciate a heart murmur) Extremities: other (There is a PICC line in her left upper extremity. No left upper extremity swelling. She will not let me touch her right upper extremity. There is a blood pressure cuff in place. Cannot visualize any overlying skin abnormality of the right upper extremity, or swelling of the elbow shoulder or wrist. Hand looks fine.) Abdomen: soft, distended Skin: other (No stigmata of endocarditis. The patient has some hyper pigmented excoriated papules on her left lower extremity, lateral aspect that do not appear secondarily infected.) Neuro/Psych: no motor/sensory deficits ICD10 Worksheet Patient Problems: Problems Problem Status Onset Abscess in epidural space of cervical spine Acute
[2019-01-14] MEDS: oxyCODONE IR 5 MG TAB PO PRN ×3 (11:10→20:07)
[2019-01-14] MEDS ORDERED: IOPAMIDOL (ISOVUE-300) 100 ML BTL ONE (11:27)
--- NOTE | 2019-01-14 12:37 | PDINTPN ---
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 Status post cervical surgery yesterday but definitive abscess not found. Cultures growing Staph aureus, presumably this same MSSA as in BCs. On nafcillin per ID. Cervical pain is better postoperative. Hip pain/shoulder pain: Had a fall a few weeks ago. May be related to her fall but pain not present initially. Metastatic foci of infection, possibly a septic joint needs to be excluded. CT scans of the shoulder and right hip pending. Pain control. Very sensitive to narcotics. Easily over sedated. Did better on a MS PUTTY MAKER. Not requiring this now. Off low-dose Precedex currently. Hypotension: Off Levophed. Atrial fibrillation: Currently in sinus rhythm. On Pradaxa at admission, now held. Hyponatremia: Sodium stable at 130, improved. Likely SIADH. Plan: Continue oral fluid restriction. Continue IV normal saline. Hold morphine PUTTY MAKER and Precedex unless needed. Continue adequate pain control as needed. Await CT scan results. Continue antibiotics per ID. To continue to hold Pradaxa. Follow laboratory. 35 min of critical care time spent directly with the patient. Discussed with ID , hospitalist, nursing, the ICU multi disciplinary team. Subjective: Feels better overall. Less pain with movement. Can stand and pivot without screaming in pain. Complains of some shoulder pain this morning. Objective: Vital Signs Temp Pulse Resp BP Pulse Ox 37.2 C 89 14 95/66 L 94 01/14/19 12:00 01/14/19 12:00 01/14/19 12:00 01/14/19 12:00 01/14/19 12:00 Microbiology 01/13/19 09:00 Gram Stain - Final Neck - Eswab Laboratory Results 01/14/19 04:20 01/14/19 04:20 01/13/19 01/14/19 01/15/19 05:59 05:59 05:59 Intake Total 3182 3622 Output Total 750 1950 Balance 2438 2482 Laboratory Tests 01/14/19 04:20 Calcium 8.1 L Magnesium 2.0 Right shoulder, right hip CT scans pending. Physical Exam - Physical Exam General Appearance: alert, no apparent distress, obese, other (Up in chair) EENT: PERRL/EOMI, other (On room air) Neck: other (Status post cervical surgery, no call her in place per) Respiratory: lungs clear, decreased breath sounds (At bases) Cardiac/Chest: tachycardia (Sinus), No gallop Abdomen: non-tender, soft (Obese), No normal bowel sounds (Decreased, present) Pelvic Exam: other (Rust catheter in place, good urine output.) Skin: normal color, warm/dry Extremities: pedal edema (Trace +) Neuro/Psych: no motor/sensory deficits, No cognition abnormalities ICD10 Worksheet Patient Problems: Problems Problem Status Onset Abscess in epidural space of cervical spine Acute
--- NOTE | 2019-01-14 13:18 | CPEKG ---
Test Reason : OPEN Blood Pressure : / mmHG Vent. Rate : 125 BPM Atrial Rate : 125 BPM P-R Int : 187 ms QRS Dur : 097 ms QT Int : 287 ms P-R-T Axes : 007 -07 126 degrees QTc Int : 414 ms Sinus tachycardia Probable left atrial enlargement Nonspecific T abnormalities, lateral leads Confirmed by Gabriel Gordon ([id number]) on 01/14/2019 1:18:01 PM Referred By: Luis Silveira Confirmed By:Gabriel Gordon
--- NOTE | 2019-01-14 14:25 | ASMTCMCOM ---
CM Note CM Note Notes: Pt underwent spinal surgery with Dr Resendiz, on ICU has been having issues with pain. Refused PT today. Pt referred to [facility] and they met with her today and were interested in their services. Discharge needs TBD. Pt has medicaid. Plan: TBD Date Signed: 01/14/2019 02:24 PM Electronically Signed By:PRIYA Schneider
[2019-01-14] MEDS ORDERED: POTASSIUM CL 10 MEQ TAB PO ONE (19:09)
[2019-01-14] MEDS: MELATONIN 3 MG TAB PO SCH (21:07)
[2019-01-15] MEDS: traMADol 50 MG TAB PO SCH ×3 (02:51→20:43)
[2019-01-15] MEDS: oxyCODONE IR 5 MG TAB PO PRN ×3 (03:48→20:43)
[2019-01-15] MEDS: ceFAZolin 2 GM/DEXTROSE 100 ML IV SCH ×3 (05:43→21:56)
--- NOTE | 2019-01-15 07:10 | NEUSURGPN ---
Date of Surgery: 01/13/19 Post Op Day: 2 Assessment/Plan: Assessment: 58 yo female s/p right C4-5 hemilaminectomy for washout of epidural abscess. POD #2 (During surgery, no real abscess visualized. Possible that this went away with abx last two days while waiting for surgery. Paracervical muscle explored as well in area of surgery and could not get any genevieve pus for culture. Swab was sent from epidural space even though no pus visualized. Vanco powder placed in wound prior to closing) Plan: -Continue with ICU per IM/Critical care -Follow Blood cxs-MSSA -Follow intraoperative cx as well-Staph Aureus -Optimize pain management-better this am -Plan to repeat cervical spine MRI in 2-3 weeks -Crit care/IM managing BP/medical concerns-appreciate their input -ID managing abx-appreciate their input and care as well -Call with any changes in exam -diet as tolerated to regular -call with any questions or concerns Subjective: Awake and alert. NAD. No new events per RN. Chart reviewed Objective: Awake and alert. PERRLA/EOMI no droop CN 2-12 grossly intact PERRLA, EOMI BUE 5/5= Negative Hoffmans bilaterally BLE 5/5= SILT Neuro Check Frequency: per routine Urinary Catheter in Place: No Catheter Insertion Date: 01/13/19 - Physician Discussed Patient with : Astrid Neurosurgery Physical Exam - Vitals, I&O, Labs I and O 01/14/19 01/15/19 01/16/19 05:59 05:59 05:59 Intake Total 3622 1963 Output Total 1950 2450 Balance 1672 -487 Weight 91.6 kg Intake: Oral (ml) 1320 1520 IV Intake (ml) 443 IV Infused (ml) 2302 Dexmedetomidine HCl 400 38 mcg In Ns 100 ml @ Titrate IV CONT ESTHER Rx#: [id number] Norepinephrine Bitartrate 840 4 mg In Ns 500 ml @ Per Protocol IV CONT ESTHER Rx#: [id number] Ns 1,000 ml @ 20 mls/hr 1424 IV CONT ESTHER Rx#: [id number] Output: Urine (ml) 1950 2450 Catheter 1950 2450 Other: Number of Stools Catheter 0 1 Microbiology 01/13/19 09:00 Gram Stain - Final Neck - Eswab Vital Signs Temp Pulse Resp BP Pulse Ox 36.6 C 97 16 140/80 H 97 01/15/19 05:40 01/15/19 05:40 01/15/19 05:40 01/15/19 05:40 01/15/19 05:40 Laboratory Results 01/15/19 05:41 01/15/19 05:41 ICD10 Worksheet Patient Problems: Problems Problem Status Onset Abscess in epidural space of cervical spine Acute
[2019-01-15] MEDS: ACETAMINOPHEN 500 MG TAB PO SCH ×3 (07:29→21:56)
[2019-01-15] MEDS: GABAPENTIN 300 MG CAP PO SCH ×3 (09:07→21:56)
[2019-01-15] MEDS: METHIMAZOLE 5 MG TAB PO SCH (09:07)
[2019-01-15] MEDS: METHOCARBAMOL 750 MG TAB PO SCH ×3 (09:08→21:56)
[2019-01-15] MEDS: METOPROLOL TARTRATE 50 MG TAB PO SCH (09:08)
[2019-01-15] MEDS: FLECAINIDE ACETATE 100 MG TAB PO SCH ×2 (09:08→20:41)
[2019-01-15] MEDS: SENNOSIDES/DOCUSATE SODIUM TAB PO SCH ×2 (09:09→20:45)
[2019-01-15] MEDS: ENOXAPARIN 40 MG/0.4 ML SYR SC SCH (09:10)
--- NOTE | 2019-01-15 10:06 | PCMIDPN ---
Assessment/Plan: # MSSA bacteremia with cervical epidural phlegmon status post washout, cx from OR positive. Also C4-5 possible OM, facet septic arthritis, as well as R paraspinal phlegmon at C spine with inflammatory changes into axilla; L iliopsoas inflammation. Recent high EtOH use may have predisposed to infection , no h/o recurrent infection. Could consider secondary hematologic malignancy w h/o chemo in 30s but no suggestion of this on wbc differential. Blood cx cleared. No other drainable source ID'd --continue high dose cefazolin --change PICC line tomorrow --dc cameron when feasible --plan 6-8 weeks IV antibiotics # H/o breast cancer with chemo in her 30s Microbiology 01/13/19 Neck - Eswab: MSSA 01/13/19 Blood cx 2/2: NGTD 01/10/19 Blood Cx 2/2: MSSA Subjective: admits to escalation of amounts of EtOH several months prior to hospitalization no diarrhea Objective: Vital Signs Temp Pulse Resp BP Pulse Ox 36.9 C 109 H 19 133/79 H 95 01/15/19 08:00 01/15/19 08:00 01/15/19 08:00 01/15/19 08:00 01/15/19 08:00 Microbiology 01/13/19 09:00 Gram Stain - Final Neck - Eswab Laboratory Results 01/15/19 05:41 01/15/19 05:41 01/14/19 01/15/19 01/16/19 05:59 05:59 05:59 Intake Total 3622 1963 Output Total 1950 2450 Balance 1672 -487 ESR 110 MM/HR (0-30) H 01/10/19 15:30 C-Reactive Protein 268.3 mg/L (<10.0) H 01/10/19 19:51 - Physical Exam General Appearance: alert, no apparent distress EENT: pale conjunctiva, other (fair dentition), No scleral icterus, No thrush Respiratory: lungs clear, No accessory muscle use Neck: supple, other (incision dressing in place) Cardiac/Chest: regular rate, rhythm, No systolic murmur Abdomen: non-tender, soft Pelvic Exam: cameron Skin: No rash Neuro/Psych: alert, normal mood/affect, other (very subtle R hand weakness, ambulating with walker w/o difficulty) - Line/s RUE PICC Lines: other (extensive ecchymosis), No drainage, No erythema - Time Spent With Patient Time Spent with Patient: greater than 35 minutes Time Spent with Patient: Greater than 35 minutes spent on this patients care, greater than 50% of time spent counseling, educating, and coordinating care regarding the above mentioned plan. ICD10 Worksheet Patient Problems: Problems Problem Status Onset Abscess in epidural space of cervical spine Acute
[2019-01-15] MEDS ORDERED: POTASSIUM CL 10 MEQ TAB PO ONE ×2 (10:28→19:56)
--- NOTE | 2019-01-15 11:18 | PDINTPN ---
[employer] Progress Note Assessment/Plan: Assessment: Cervical epidural abscess: With moderate-severe cervical stenosis. Status post cervical surgery. Cultures growing Staph aureus, same MSSA as in BCs. On nafcillin per ID. Cervical pain is better postoperative. Hip pain/shoulder pain: Had a fall a few weeks ago. May be related to her fall but pain not present initially. Metastatic foci of infection, possibly a septic joint needs to be excluded. CT scans of the shoulder and right hip are negative for abscess. Some stranding in soft tissues seen related to the right hip and right neck. May be related to infection or inflammation. If it is the former antibiotics should cover. Pain is definitely improving. Pain control. Very sensitive to narcotics. Off morphine sulfate PET SITTER and Precedex. The pain overall is much better.. Hypotension: Off Levophed. Atrial fibrillation: Currently in sinus rhythm. On Pradaxa at admission, now held. Hyponatremia: Sodium stable at 133, improved. Likely SIADH. Prophylaxis: On enoxaparin, eating. Plan: Continue oral fluid restriction. Continue IV normal saline. Hold morphine PET SITTER and Precedex unless needed. Continue adequate pain control as needed. Continue antibiotics per ID. To continue to hold Pradaxa. Follow laboratory. Can transition certainly to SDU today. Inpatient rehab consultation to be requested. 30 min of critical care time spent directly with the patient. Discussed with ID , hospitalist, nursing, the ICU multi disciplinary team. Subjective: Feels better. Up walking with a walker. Still has hip and shoulder pain, but both have significantly improved. Objective: Vital Signs Temp Pulse Resp BP Pulse Ox 36.9 C 76 15 114/56 L 92 01/15/19 08:00 01/15/19 10:00 01/15/19 10:00 01/15/19 10:00 01/15/19 10:00 Microbiology 01/13/19 09:00 Gram Stain - Final Neck - Eswab Laboratory Results 01/15/19 05:41 01/15/19 05:41 01/14/19 01/15/19 01/16/19 05:59 05:59 05:59 Intake Total 3622 1963 Output Total 3544 2450 Balance 1672 -487 Physical Exam - Physical Exam General Appearance: alert, no apparent distress, obese EENT: PERRL/EOMI, exophthalmia, other (Nasal cannula in place at 2 L) Neck: normal inspection (Large neck, no obvious JVD) Respiratory: lungs clear (Anteriorly), decreased breath sounds (At bases, coarse ), rales (Few rales at bases), No rhonchi Cardiac/Chest: regular rate, rhythm, No gallop Abdomen: normal bowel sounds, non-tender, soft (Overweight) Pelvic Exam: other (Rust catheter in place. Good urine output last 24 hr.) Skin: normal color, warm/dry Extremities: pedal edema (Trace +) Neuro/Psych: no motor/sensory deficits, No cognition abnormalities ICD10 Worksheet Patient Problems: Problems Problem Status Onset Abscess in epidural space of cervical spine Acute
--- NOTE | 2019-01-15 12:15 | HOSPPROG ---
Hospitalist Progress Note Assessment/Plan: 58yo F with chronic afib on AC, Graves disease presented with neck pain found to have cervical epidural abscess and bacteremia. Course complicated by uncontrolled pain, MILES, encephalopathy. #C4-5 epidural abscess with resultant cord compression - S/p evacuation of epidural phlegmon (no abscess) by Dr Resendiz 01/13 however no significant paraspinous fluid collection visualized - Intra-op cx growing MSSA #MSSA bacteremia - Repeat cultures 01/13 NGTD. If remain negative tomorrow (01/16), replace PICC - ID following, continue cefazolin. Needs 6-8 wks of abx #Left hip and right shoulder pain: CT negative for fluid collection/abscess. #MILES: Resolved. 2/2 prerenal state. #Acute pain: Improved. - Continue oxy 5-10mg PRN, tramadol/serina/robaxin #Sinus tachycardia: Improved. C/w beta ilene withdrawal - Increase lopressor to 100mg BID (equivalent to home dose) #Hypotension/shock: Resolved. Related to infection vs meds vs tachycardia - Holding lasix, losartan #Post-op anemia: No e/o bleeding. Monitor. #Chronic atrial fibrillation: [id number] or 3. - Holding AC (pradaxa) - Continue flecainide #Acute metabolic/toxic encephalopathy: Resolved. Due to infection and meds #Acute/subacute hyponatremia: C/w SIADH. Stable/improving. - Continue fluid restriction #Graves disease: Thyroid studies ok. Continue methimazole. #? h/o CHF: Not volume overloaded. #Deconditioning: Inpatient rehab evaluation order placed. Remove cameron catheter today. VTE ppx: LMWH Code: full Dispo: Remain inpatient, ok to transfer to SDU Subjective: Doing quite well this AM. Had some difficulty sleeping. Pain better. No fevers. Objective: Vital Signs Temp Pulse Resp BP Pulse Ox 36.9 C 76 15 114/56 L 92 01/15/19 08:00 01/15/19 10:00 01/15/19 10:00 01/15/19 10:00 01/15/19 10:00 Microbiology 01/13/19 09:00 Gram Stain - Final Neck - Eswab Laboratory Results 01/15/19 05:41 01/15/19 05:41 05/01/15/19 01/16/19 05:59 05:59 05:59 Intake Total 3622 1962 Output Total 2094 7683 Balance 0158 -778 - Physical Exam Constitutional: no apparent distress Eyes: other (exophthalmous) Ears, Nose, Mouth, Throat: moist mucous membranes Cardiovascular: regular rate and rhythym, no murmur, rub, or gallop, No edema Respiratory: no respiratory distress, no rales or rhonchi, clear to auscultation Gastrointestinal: normoactive bowel sounds, soft, non-tender abdomen, no palpable masses Genitourinary: cameron in urethra Skin: no rashes or abrasions, no fluctuance, no induration, other (bruising around PICC site) Musculoskeletal: generalized weakness Neurologic: AAOx3 Psychiatric: interacting appropriately ICD10 Worksheet Patient Problems: Problems Problem Status Onset Abscess in epidural space of cervical spine Acute
[2019-01-15] MEDS: METOPROLOL TARTRATE 100 MG TAB PO SCH (20:42)
[2019-01-15] MEDS: ZOLPIDEM TARTRATE 5 MG TAB PO PRN (20:44)
[2019-01-15] MEDS: MELATONIN 3 MG TAB PO SCH (20:45)
[2019-01-16] MEDS: oxyCODONE IR 5 MG TAB PO PRN ×3 (04:17→11:46)
[2019-01-16] MEDS: ACETAMINOPHEN 500 MG TAB PO SCH ×4 (06:20→22:05)
[2019-01-16] MEDS: ceFAZolin 2 GM/DEXTROSE 100 ML IV SCH ×3 (06:21→22:05)
[2019-01-16] MEDS ORDERED: MAGNESIUM SULF 2 GM/WATER 50 ML IV ONE (07:40)
[2019-01-16] MEDS: traMADol 50 MG TAB PO SCH ×2 (08:20→20:02)
[2019-01-16] MEDS: METHOCARBAMOL 750 MG TAB PO SCH ×3 (08:20→22:05)
[2019-01-16] MEDS: METOPROLOL TARTRATE 100 MG TAB PO SCH ×2 (08:21→20:03)
[2019-01-16] MEDS: FLECAINIDE ACETATE 100 MG TAB PO SCH ×2 (08:22→20:07)
[2019-01-16] MEDS: SENNOSIDES/DOCUSATE SODIUM TAB PO SCH ×2 (08:22→20:04)
[2019-01-16] MEDS: METHIMAZOLE 5 MG TAB PO SCH (08:22)
[2019-01-16] MEDS: GABAPENTIN 300 MG CAP PO SCH ×3 (08:22→22:06)
[2019-01-16] MEDS: ENOXAPARIN 40 MG/0.4 ML SYR SC SCH (08:23)
[2019-01-16] MEDS ORDERED: ALTEPLASE 2 MG VIAL IVP PRN (11:36)
--- NOTE | 2019-01-16 13:21 | PCMIDPN ---
Assessment/Plan: # MSSA bacteremia with cervical epidural phlegmon status post washout, cx from OR positive. Also C4-5 possible OM, facet septic arthritis, as well as R paraspinal phlegmon at C spine with inflammatory changes into axilla; L iliopsoas inflammation. Blood cx cleared. No other drainable source ID'd based on CT R shoulder and L buttock. Overall stable to improved --ECHO poor visualization of valve but blood cx cleared rapidly and will not change duration of therapy therefore no NICHOLAS --continue high dose cefazolin --change to single lumen picc today --dc cameron when feasible --plan 6-8 weeks IV antibiotics --recheck labs in AM # H/o breast cancer with chemo in her 30s Microbiology 01/13/19 Neck - Eswab: MSSA 01/13/19 Blood cx 2/2: NGTD 01/10/19 Blood Cx 2/2: MSSA meds cefazolin 2gm IV q8h #3, start 01/14 Subjective: cameron had to be replaced due to retention c/o R neck, axillary and L buttock pain, but not worse constipation Objective: Vital Signs Temp Pulse Resp BP Pulse Ox 36.8 C 74 16 146/80 H 91 L 01/16/19 11:35 01/16/19 11:35 01/16/19 11:35 01/16/19 11:35 01/16/19 11:35 Microbiology 01/13/19 09:00 Gram Stain - Final Neck - Eswab Laboratory Results 01/15/19 05:41 01/16/19 06:15 01/15/19 01/16/19 01/17/19 05:59 05:59 05:59 Intake Total 1963 1403 Output Total 2450 650 350 Balance -487 753 -350 ESR 110 MM/HR (0-30) H 01/10/19 15:30 C-Reactive Protein 268.3 mg/L (<10.0) H 01/10/19 19:51 General Appearance: alert, no apparent distress - appears a bit more vigorous today EENT: pale conjunctiva, fair dentition, No scleral icterus, No thrush; exophthalmos Respiratory: lungs clear, No accessory muscle use Neck: supple, incision c/d/i Cardiac/Chest: regular rate, rhythm, No systolic murmur Abdomen: non-tender, soft Pelvic Exam: cameron Skin: No rash Neuro/Psych: alert, normal mood/affect, very subtle R hand weakness, ambulating with walker w/o difficulty RUE PICC: extensive ecchymosis, No drainage, No erythema ICD10 Worksheet Patient Problems: Problems Problem Status Onset Abscess in epidural space of cervical spine Acute
--- NOTE | 2019-01-16 13:29 | HOSPPROG ---
Hospitalist Progress Note Assessment/Plan: 58yo F with chronic afib on AC, Graves disease presented with neck pain found to have cervical epidural abscess and bacteremia. Course complicated by uncontrolled pain, MILES, encephalopathy. #C4-5 epidural abscess with resultant cord compression - S/p evacuation of epidural phlegmon (no abscess) by Dr Resendiz 01/13 however no significant paraspinous fluid collection visualized - Intra-op cx growing MSSA #MSSA bacteremia - Repeat cultures 01/13 NGTD - Exchange PICC today - ID following, continue cefazolin. Needs 6-8 wks of abx #Left hip and right shoulder pain: CT negative for fluid collection/abscess. #MILES: Resolved. 2/ prerenal state. #Acute pain: Improved. - Continue oxy 5-10mg PRN, tramadol/serina/robaxin #Sinus tachycardia: Improved. C/w beta ilene withdrawal - Increased lopressor to 100mg BID (equivalent to home dose) #Hypotension/shock: Resolved. Related to infection vs meds vs tachycardia - Holding lasix, losartan #Post-op anemia: No e/o bleeding. Monitor. #Chronic atrial fibrillation: [id number] or 3. - Restart pradaxa this evening - Continue flecainide #Acute metabolic/toxic encephalopathy: Resolved. Due to infection and meds #Acute/subacute hyponatremia: C/w SIADH. Stable/improving. - Continue fluid restriction #Graves disease: Thyroid studies ok. Continue methimazole. #? h/o CHF: Not volume overloaded. #Deconditioning: Inpatient rehab evaluation order placed. #Urinary retention: Rust in place VTE ppx: therapeutic anticoagulation Code: full Dispo: Remain inpatient, ok to transfer to floor. PT/OT recommending inpatient rehab, will d/w CM. Subjective: Continues to improve. Still with some right shoulder/neck pain but not worse. No fevers. Objective: Vital Signs Temp Pulse Resp BP Pulse Ox 36.8 C 74 16 146/80 H 91 L 01/16/19 11:35 01/16/19 11:35 01/16/19 11:35 01/16/19 11:35 01/16/19 11:35 Microbiology 01/13/19 09:00 Gram Stain - Final Neck - Eswab Laboratory Results 01/15/19 05:41 01/16/19 06:15 01/15/19 01/16/19 01/17/19 05:59 05:59 05:59 Intake Total 5882 1403 Output Total 245 650 350 Balance -487 753 -350 - Physical Exam Constitutional: no apparent distress Eyes: PERRL, anicteric sclera, EOMI, other (exophthlamous) Ears, Nose, Mouth, Throat: moist mucous membranes Cardiovascular: regular rate and rhythym, no murmur, rub, or gallop, No edema Respiratory: no respiratory distress, no rales or rhonchi, clear to auscultation Gastrointestinal: normoactive bowel sounds, soft, non-tender abdomen, no palpable masses Genitourinary: no bladder fullness, no bladder tenderness, no renal bruits Skin: no rashes or abrasions, no fluctuance, no induration Musculoskeletal: full muscle strength, no muscle tenderness, normal joint ROM Neurologic: AAOx3 Psychiatric: interacting appropriately ICD10 Worksheet Patient Problems: Problems Problem Status Onset Abscess in epidural space of cervical spine Acute
[2019-01-16] MEDS ORDERED: DIAZEPAM 5 MG TAB PO ONE (13:59)
[2019-01-16] MEDS: MELATONIN 3 MG TAB PO SCH (20:03)
[2019-01-16] MEDS: DABIGATRAN ETEXILATE MESYL 150 MG CAP PO SCH (20:04)
[2019-01-16] MEDS ORDERED: POTASSIUM CL 10 MEQ TAB PO ONE (21:40)
[2019-01-16] MEDS: ZOLPIDEM TARTRATE 5 MG TAB PO PRN (22:17)
[2019-01-17 04:34] LABS: PLATELET COUNT 250 10^3/uL (150-400)
[2019-01-17] MEDS: ceFAZolin 2 GM/DEXTROSE 100 ML IV SCH ×2 (06:16→14:43)
[2019-01-17] MEDS: ACETAMINOPHEN 500 MG TAB PO SCH ×2 (06:16→14:43)
[2019-01-17] MEDS: oxyCODONE IR 5 MG TAB PO PRN ×2 (06:25→15:04)
[2019-01-17] MEDS ORDERED: POTASSIUM CL 10 MEQ TAB PO ONE (07:02)
[2019-01-17] MEDS ORDERED: MAGNESIUM SULF 2 GM/WATER 50 ML IV ONE (07:02)
[2019-01-17] MEDS: GABAPENTIN 300 MG CAP PO SCH ×2 (09:04→15:04)
[2019-01-17] MEDS: METHOCARBAMOL 750 MG TAB PO SCH ×2 (09:04→15:04)
[2019-01-17] MEDS: SENNOSIDES/DOCUSATE SODIUM TAB PO SCH (09:05)
[2019-01-17] MEDS: METOPROLOL TARTRATE 100 MG TAB PO SCH (09:05)
[2019-01-17] MEDS: FLECAINIDE ACETATE 100 MG TAB PO SCH (09:06)
[2019-01-17] MEDS: traMADol 50 MG TAB PO SCH (09:07)
[2019-01-17] MEDS: METHIMAZOLE 5 MG TAB PO SCH (09:08)
[2019-01-17] MEDS: DABIGATRAN ETEXILATE MESYL 150 MG CAP PO SCH (10:22)
--- NOTE | 2019-01-17 11:20 | PCMIDPN ---
Assessment/Plan: 1. MSSA bacteremia with cervical epidural phlegmon status post washout: Much better overall. Tolerating cefazolin without issue. Patient will likely go to inpatient rehab ([facility]) later this afternoon. She will need 8 weeks of cefazolin; stop date March 10. New PICC line placed yesterday. Will do interagency form presently. Subjective: No complaints. In good spirits. Happy to be going to inpatient rehab. Objective: Cefazolin 2 g IV q.8 hours day 4 (clock started January 13), stop date March 10 Vital Signs Temp Pulse Resp BP Pulse Ox 36.6 C 102 H 16 139/89 H 97 01/17/19 07:36 01/17/19 09:05 01/17/19 07:36 01/17/19 09:05 01/17/19 07:36 Microbiology 01/13/19 09:00 Gram Stain - Final Neck - Eswab Laboratory Results 01/17/19 04:20 01/17/19 04:20 01/16/19 01/17/19 01/18/19 05:59 05:59 05:59 Intake Total 1403 1620 100 Output Total 650 2250 750 Balance 753 -630 -650 ESR 110 MM/HR (0-30) H 01/10/19 15:30 C-Reactive Protein 51.9 mg/L (<10.0) H 01/17/19 04:20 Blood cultures x2 January 13 no growth - Physical Exam General Appearance: no apparent distress, obese EENT: No scleral icterus Respiratory: lungs clear Cardiac/Chest: systolic murmur (This is now audible in the right upper sternal border and right lower sternal border) Extremities: other (New PICC line left upper extremity looks fine) Abdomen: non-tender, soft Skin: No rash, No embolic lesions ICD10 Worksheet Patient Problems: Problems Problem Status Onset Abscess in epidural space of cervical spine Acute
--- NOTE | 2019-01-17 11:22 | PDIAF ---
- Diagnosis Diagnosis: Cervical epidural phlegmon with bacteremia secondary to MSSA Code Status: Full Code - Medication Management Typewriter Tester Antibiotics: Ancef 2 g IV q.8 hours Snf Antibiotic Stop Date: 03/10/19 Discharge Medications: electronically signed and located in the Home Medication List. PICC Care - Routine: Yes - Orders Additional Instructions: -see Dr Resendiz and his team in 2-3 weeks for a recheck and review of a new MRI of the C spine with and wo contrast -call with any questions or concerns -no swimming in pool -showering is ok on POD #3 - Labs/Radiology CBC w/diff Date: 01/20/19 (weekly:fax result to Dr. Mcmillan [phone] ) CMP Date: 01/20/19 (weekly: fax result to Dr. Mcmillan [phone]) - Follow Up Care Current Providers and Referrals: GABY DYKES [Other] - As per Instructions Michael Resendiz MD [Medical Doctor] - (follow up in 2-3 weeks)
[2019-01-17 11:37] VITALS: BP 116/71
--- NOTE | 2019-01-17 12:22 | PDDCSUM ---
Discharge Summary Discharge Summary: Date of Admission: 01/10/2019 Date of Discharge: 01/17/2019 Consultants: neurosurgery, infectious disease, converting supervisor Studies: C/T/L spine MRI, CT of R shoulder and L hip, TTE Procedures: PICC line placement x2, R C4-5 hemilaminectomies and evacuation of epidural abscess/phlegmon (Dr Resendiz, 01/13) Discharge Diagnoses: 1. MSSA bacteremia 2. Cervical epidural abscess/phlegmon s/p washout 3. Shock (multifactorial from sepsis, medications), resolved 4. MILES, resolved 5. Acute toxic/metabolic encephalopathy, resolved 6. Subacute hyponatremia secondary to SIADH, improved with fluid restriction 7. Atrial fibrillation on chronic anticoagulation 8. Post-operative anemia 9. Urinary retention, cameron in place at discharge 10. Graves disease 11. ? h/o CHF, euvolemic 12. H/o alcohol abuse Brief Hospital Course: 58yo F with chronic afib on pradaxa presented with R neck, R shoulder, and L hip pain found to have cervical epidural abscess and MSSA bacteremia. She developed shock with resultant MILES and became encephalopathic. Her pradaxa was held. ID was consulted and she was placed on nafcillin which was switched to cefazolin due to her renal function. She was taken to the OR and underwent C4-5 hemilaminectomy with phlegmon washout by Dr Resendiz (intra-op cultures also grew MSSA). Interestingly, there was no clear paraspinous muscle abscess found during surgery despite being visualized on MRI. She had quite a bit of post- operative pain requiring morphine REPRESENTATIVE PERSONAL SERVICE. She had persistent R shoulder and L hip pain; CT of these areas did not show any drainable fluid collection but did show some stranding in the left hip. Her mental status, kidney function, and hemodynamics improved back to normal. Pain was controlled. Her PICC line was exchanged with plan to complete 8 weeks of antibiotics. Her pradaxa was restarted. She was discharged to inpatient rehab here at [facility] with a cameron catheter in place for ongoing urinary retention. Medications: Please refer to EMR for complete list. Her losartan and lasix were stopped. She was continued on cefazolin and started on magnesium supplementation. Follow Up Plan: 1. Plan for 8 weeks of cefazolin through 03/10/2019 per ID 2. Repeat MRI of the C-spine w and wo in 2-3 weeks and follow up with Dr Resendiz 3. Assess for ability to remove cameron catheter 4. Monitor for need to restart diuretic or BP meds 5. Continue fluid restriction, intermittently monitor serum Na Physical Exam: Vitals reviewed, afebrile. Alert and oriented, exophthalmous, rrr , lungs clear, abdomen soft and nt, no leg edema.
--- NOTE | 2019-01-17 12:22 | PDIAF ---
- Diagnosis Diagnosis: Cervical epidural phlegmon with bacteremia secondary to MSSA Code Status: Full Code - Medication Management Adaptive Physical Education Specialist Antibiotics: Ancef 2 g IV q.8 hours Group Home Antibiotic Stop Date: 03/10/19 Discharge Medications: electronically signed and located in the Home Medication List. PICC Care - Routine: Yes - Orders Services needed: Physical Therapy, Occupational Therapy Cameron: Yes Additional Instructions: Medication changes: 1. Cefazolin per infectious disease team. 2. Stopped lasix and losartan. May need to resume in near future. 3. Can use oxycodone as needed in post-operative period. 4. Started you on magnesium supplementation. Items for follow up: 1. Assess ability to remove cameron catheter routinely. 2. Monitor serum magnesium levels at least every few days. Neurosurgery follow up: -see Dr Resendiz and his team in 2-3 weeks for a recheck and review of a new MRI of the C spine with and wo contrast -call with any questions or concerns -no swimming in pool -showering is ok on POD #3 - Labs/Radiology CBC w/diff Date: 01/20/19 (weekly:fax result to Dr. Mcmillan [phone] ) CMP Date: 01/20/19 (weekly: fax result to Dr. Mcmillan [phone]) - Follow Up Care Current Providers and Referrals: GABY DYKES [Other] - As per Instructions Michael Resendiz MD [Medical Doctor] - (follow up in 2-3 weeks)
--- NOTE | 2019-01-17 14:47 | ASMTLACE ---
LACE Length of stay for Answers: 7-13 days current admission Acuity / Level of Answers: Yes Care: Did the patient have an inpatient admission? Comorbidities - select Answers: Any tumor (including all that apply lymphoma or leukemia) Congestive heart failure Other Notes: Graves # of Emergency department Answers: 1-2 visits in the last 6 months Score: 14 Date Signed: 01/17/2019 02:46 PM Electronically Signed By:JAYLIN Martínez
--- NOTE | 2019-01-17 14:48 | ASMTCMCOM ---
CM Note CM Note Notes: Pt medically stable for d/c to [facility] inpatient rehab. Orders to be obtained in Allscripts. RUY Resendiz called report. Date Signed: 01/17/2019 02:48 PM Electronically Signed By:JAYLIN Martínez
--- NOTE | 2019-01-17 16:51 | ASDISCHSUM ---
Discharge Information Plan Status:Inpatient Rehab Medically Cleared to Leave: Discharge Date:01/17/2019 03:22 PM CM D/C Disposition: ADT D/C Disposition:[facility] IP Projected Discharge Date:01/17/2019 11:00 AM Transportation at D/C: Discharge Delay Reason: Follow-Up Date:01/17/2019 11:00 AM Discharge Slot: Final Diagnosis: Placement Information Referral Type:Rehabilitation Hospital Referral ID:[id number] Provider Name:[facility] Address 1:[address] Phone Number: Address 2: Fax Number: City:[place] Selection Factors: State:[place] Patient Contact Information Contact Name:MICHAEL Relationship:Sister Address:[address] [place] Work Phone: City:[place] Alternate Phone: State/Zip Code:[place] [address] Email: Financial Information Financial Class:Medicaid Primary Plan Desc:[place] Primary Plan Number:[id number] Secondary Plan Desc: Secondary Plan Number: Assessment Information LACE LACE Length of stay for Answers: 7-13 days current admission Acuity / Level of Answers: Yes Care: Did the patient have an inpatient admission? Comorbidities - select Answers: Any tumor (including all that apply lymphoma or leukemia) Congestive heart failure Other Notes: [facility] # of Emergency department Answers: 1-2 visits in the last 6 months Score: 14 Date Signed: 01/17/2019 02:46 PM Electronically Signed By:JAYLIN Martínez [facility] CM Progress Note CM Note CM Note Notes: Chart reviewed for discharge planninf purposes. Patient is a 56 year old female admitted via ED for c/o severe pain in her neck with radiation down her arms. She is admtted to ICU for spinal abcess. CM to follow for needs. Plan: TBD Date Signed: 01/11/2019 04:12 PM Electronically Signed By:Sushma Reyes RN [facility] CM Progress Note CM Note CM Note Notes: Pt underwent spinal surgery with Dr Resendiz, on ICU has been having issues with pain. Refused PT today. Pt referred to [facility] and they met with her today and were interested in their services. Discharge needs TBD. Pt has medicaid. Plan: TBD Date Signed: 01/14/2019 02:24 PM Electronically Signed By:PRIYA Schneider [facility] CM Progress Note CM Note CM Note Notes: Pt medically stable for d/c to [facility] inpatient rehab. Orders to be obtained in Allnjripts. RUY Resendiz called report. Date Signed: 01/17/2019 02:48 PM Electronically Signed By:JAYLIN Martínez Intervention Information Intervention Type:No Admission Order Date of Service:01/10/2019 11:15 AM Patient Type:Inpatient Staff Member:RUY Daniel Courtney Hours: Discipline: Severity: Comment:Texted Dr. Mccall-agreed to enter or sarath
--- NOTE | 2019-01-21 08:56 | GCON ---
[f rep st] CONSULTATION NEUROSURGERY CONSULTATION I originally saw her on 01/10/2019 and thought that there was a full consult note in there, but there was not, so this consult was actually performed on 01/10/2019. ADMISSION DIAGNOSIS: Cervical epidural abscess with severe canal stenosis. DISCHARGE DIAGNOSIS: Cervical epidural abscess with severe canal stenosis. HISTORY OF PRESENT ILLNESS: This is a 58-year-old female who originally presented to the [facility] Emergency Room with severe neck pain and signs of infection. She was admitted to the hospital . An MRI of the cervical, thoracic and lumbar spine revealed a relatively small but somewhat cammy sive epidural abscess in the cervical spine on the right side at C4-5. There was severe canal stenos is at this level. There also appeared to be a large epidural abscess in and out into the paraspinous muscles on the right side. The patient was on Pradaxa originally, so instead of taking her to the o perating room initially as she was otherwise neurologically intact, we discussed with the patient as well as the Infectious Disease doctors to wait a couple of days before taking her to the OR for a was hout of this abscess. Additionally her blood cultures grew out MSSA and she was started on antibioti cs. On my initial consultation of the patient, the patient was in extreme pain with otherwise altere d mental status due to some pain medications that she was given recently. She is able to follow comm ands however and tell me that she states that over the last 2 weeks she has been noticing an increase of pain in the right side of her shoulders and neck. She states that she has been having soaking sw eats as well as fever and chills at night. She states that approximately 2 weeks ago she may have rand d a fall in which she did hurt her ankle, but otherwise does not remember any other recent infections . She denies any true weakness in her arms or legs, any loss of bowel or bladder control or problems with her balance. She is however in severe pain and is otherwise somewhat not a great historian for me today. REVIEW OF SYSTEMS: All pertinent positive review of systems are as stated in the HPI. PAST MEDICAL HISTORY: Hard to obtain due to the patient's current mental status. Past medical histo ry though going from the electronic medical record is consistent for atrial fibrillation, congestive heart failure, alcoholism, hypothyroidism and history of breast cancer. HOME MEDICATIONS: Methimazole, tramadol, Dabigatran, spironolactone, metoprolol, losartan, furosemid e and flecainide. ALLERGIES: She is allergic to antihistamines. SOCIAL HISTORY: The patient has a history of tobacco and alcohol abuse. FAMILY HISTORY: Unremarkable. OBJECTIVE: VITAL SIGNS: At the time of this consultation, blood pressure 141/91, heart rate 92, resp iratory rate 16, O2 saturation is 98% on 4 L by nasal cannula, temperature is 36.5 degrees Celsius. CONSTITUTIONAL: The patient is confused, but does orient when you consistently ask her questions to p erson, place and situation. She is somnolent but is arousable. She is currently being given a lot o f pain medications to control her pain and therefore her cognitive status is a little bit confused. MUSCULOSKELETAL: She is moving all extremities x4 with equal strength. She is very pain limited on t he right side due to her severe neck pain and right shoulder pain, but otherwise bilateral upper extr emity is 5/5 equal in strength in deltoids, biceps, triceps, wrist extensors, flexors, interossei and sock turner. Her sensation is intact to light touch with a normal dermatomal distribution of the body. Bi lateral lower extremities are 5/5 and equal strength in quadriceps, hamstrings, dorsiflexion, plantar flexion and EHL. Sensation is intact over the normal dermatomal distribution of the legs. She is t meron to the abdomen, primarily in the left lower quadrant as well as her left hip at the greater tro chanter and left buttocks. Cranial nerves 2-12 are grossly intact. Tongue protrusion in the midline . Palate rises symmetrically. HEENT: Eyes: Pupils are equal and reactive to light and accommodation . Extraocular muscles are intact. EXTREMITIES: There is no cyanosis or edema noted. RESPIRATORY: She has a normal work of breathing; however, she is in a lot of discomfort and this is obvious as she is rolling around in the bed. LABORATORY DATA: White blood cell count 14.52, red blood cell count 4.07, hemoglobin 12.9, hematocri t 38.3, platelets 264, sodium 133, potassium 3.8, chloride 100, carbon dioxide 26, anion gap 7, BUN 9 , creatinine 0.4, estimated GFR greater than 60, glucose 93, calcium 8.4, magnesium 1.6. Blood cultur es are significant for Staph aureus and Staph aureus methicillin susceptibility. DIAGNOSTIC IMAGING REVIEW: 1. MRI of the cervical spine was performed and does show a peripherally enhancing right dorsal epidu ral fluid collection from C3-4 through C5 consistent with abscess causing severe spinal canal narrowi ng with cord compression with possible extension to the right C4-5 neuroforaminal facet with a right paraspinal fluid collection abscess measuring up to 4.5 cm craniocaudal. 2. Extensive right paraspinal inflammation including along the right C3-C5 facet and neural foramina with edema and enhancement of the right C4-5 facets, making it difficult to exclude osteomyelitis. 3. Multilevel degenerative changes as above with severe bilateral foraminal stenosis from C3 through C7. 4. An MRI of the lumbar spine was performed as well, which showed there was no evidence of epidural abscess or psoas abscess. 5. There was heterogeneous bone marrow signal suggestive of a red marrow hyperplasia and nonspecific rounded 12 mm lesion in the posterior inferior L4 6 month MRI reevaluation suggested. 6. Multilevel degenerative changes as above detailed, most prominent at the L3-4, L4-5 and L5-S1 lev els. 7. An MRI of the thoracic spine was also obtained and this shows a thin dorsal epidural enhancement from the cervical thoracic junction to the T3 level, unchanged from her cervical MRI and this patient has a known cervical dorsal epidural abscess and a right cervical paraspinal fluid collection absces s. There are multilevel degenerative changes with no significant thoracic canal stenosis. ASSESSMENT AND PLAN: This is a 58-year-old female who presented with severe right shoulder and neck pain and was found to have a cervical epidural abscess from the area at C4-5 that did have severe com pression of the spinal cord. The patient currently is neurologically intact and without any deficits and she is also on Pradaxa. Given the patient's neurologic exam being intact, we would like her to stay off her Pradaxa for approximately 2-3 days prior to going in and evacuating this abscess surgica lly. Should she ever decline however and have any changes in her neurologic exam, we would operate s ooner. She will be started on antibiotics per Infectious Disease and Dr. Mcmillan is in here today to ass ess her as well. We will continue to watch her blood cultures and her exam. She will remain in the step-down unit for q.2 hours neuro checks. She will be started on the pain medication and did talk w ith the nurse today about putting her on scheduled Tylenol, gabapentin, Robaxin as well as other pain medication as needed. We would like them to try to diminish the amount of IV pain meds however in t he setting of her confusion. Please let us know if there are any changes in her mental status. She does have a lot of pain in her left hip and MRIs were obtained of her thoracic and lumbar spine to ma ke sure she did not have any sort of other fluid abscess and this did not show any abscess in her lum bar spine or her psoas, but we will also probably recommend that they get some imaging of her left __ in order to rule out any sort of abscess in the muscle there as well. The patient will be se en by Dr. Resendiz as well later today and we will go from there in terms of any other changes in terms of her treatment plan. Should there be any changes, questions or concerns, please contact Neurosurge ryan. /[id number]/MODL
== END 2019-01-17 15:22 | DRG 23 ==
LOC: F2N 21:20 → F3N 01-16 11:34
PROVIDERS: ADMIT Internal Medicine; ATTEND Internal Medicine
PROC: 02HV33Z Insertion of Infusion Device into Superior Vena Cava, Percutaneous Approach (ICD-10-PCS; 2019-01-10)
PROC: 009U0ZZ Drainage of Spinal Canal, Open Approach (ICD-10-PCS; principal; 2019-01-13 07:15)
PROC: 02HV33Z Insertion of Infusion Device into Superior Vena Cava, Percutaneous Approach (ICD-10-PCS; 2019-01-16)
DX: G06.1 Intraspinal abscess and granuloma (principal); M48.02 Spinal stenosis, cervical region; G92 Toxic encephalopathy; A41.01 Sepsis due to Methicillin susceptible Staphylococcus aureus; R65.20 Severe sepsis without septic shock; E22.2 Syndrome of inappropriate secretion of antidiuretic hormone; N17.9 Acute kidney failure, unspecified; D62 Acute posthemorrhagic anemia; R33.9 Retention of urine, unspecified; E05.00 Thyrotoxicosis with diffuse goiter without thyrotoxic crisis or storm; I48.0 Paroxysmal atrial fibrillation; Z85.3 Personal history of malignant neoplasm of breast; Z79.01 Long term (current) use of anticoagulants; Z92.3 Personal history of irradiation; F17.210 Nicotine dependence, cigarettes, uncomplicated
CPT/HCPCS: 84481-90; 96365; 97110-GP; 97116-GP; 97162-GP; 97166-GO; 97530-GP; 97535-GO; A9585; C1751; J0690; J0692; J0696; J1030; J1170; J1650; J2060; J2270; J2405; J2704; J3010; J3360; J3370; J3475; Q9967

== ENCOUNTER 2019-01-17 14:47 | Inpatient (IN) | payer MEDICAID ==
[2019-01-17] MEDS ORDERED: ALTEPLASE 2 MG VIAL IVP PRN (16:12)
[2019-01-17] MEDS ORDERED: ZOLPIDEM TARTRATE 5 MG TAB PO PRN ×2 (16:12→16:35)
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
[2019-01-17] MEDS: DABIGATRAN ETEXILATE MESYL 150 MG CAP PO SCH (20:29)
[2019-01-17] MEDS: TAMSULOSIN HCL 0.4 MG CAP PO SCH ×2 (20:29→20:30)
[2019-01-17] MEDS: MAGNESIUM OXIDE 400 MG TAB PO SCH (20:30)
[2019-01-17] MEDS: traMADol 50 MG TAB PO SCH (20:32)
[2019-01-17] MEDS: SENNOSIDES/DOCUSATE SODIUM TAB PO SCH (20:36)
[2019-01-17] MEDS: FLECAINIDE ACETATE 100 MG TAB PO SCH ×2 (20:36→20:57)
[2019-01-17] MEDS: oxyCODONE IR 5 MG TAB PO PRN (20:36)
[2019-01-18] MEDS: oxyCODONE IR 5 MG TAB PO PRN ×5 (00:13→19:21)
[2019-01-18] MEDS ORDERED: oxyCODONE IR 5 MG TAB PO ONE ×2 (01:13→01:30)
[2019-01-18] MEDS: traMADol 50 MG TAB PO SCH ×2 (09:22→21:07)
[2019-01-18] MEDS: FLECAINIDE ACETATE 100 MG TAB PO SCH ×2 (09:22→21:08)
[2019-01-18] MEDS: SENNOSIDES/DOCUSATE SODIUM TAB PO SCH ×2 (09:22→21:08)
[2019-01-18] MEDS: DABIGATRAN ETEXILATE MESYL 150 MG CAP PO SCH ×2 (09:22→21:08)
[2019-01-18] MEDS: MAGNESIUM OXIDE 400 MG TAB PO SCH ×2 (09:22→21:09)
[2019-01-18] MEDS: METOPROLOL SUCCINATE XR 100 MG TAB PO SCH (09:22)
[2019-01-18] MEDS: SPIRONOLACTONE 25 MG TAB PO SCH (09:22)
[2019-01-18] MEDS: METHIMAZOLE 5 MG TAB PO SCH (09:22)
[2019-01-18] MEDS ORDERED: MAGNESIUM SULF 2 GM/WATER 50 ML IV ONE (15:34)
--- NOTE | 2019-01-18 16:28 | HOSPPROG ---
Hospitalist Progress Note Assessment/Plan: * Debility from C4-C5 hemilaminectomy and phlegmon washout * PT/OT * Cognitive Issues from head injury d/t recent fall pre-hospitalization * speech therapy * MSSA bacteremia * IV cefazolin till March 10 * Low magnesium * will give Iv mag today and recheck tomorrow * Hyponatremia * watch * Insomnia * increase ambien dose * h/o chf * h/o afib * urinary retention * dc cameron d/t discomfort * DVT proph * pradaxa Subjective: having some discomfort from cameron. thinks the higher dose ambien will work better. speech thinks there may be some cognitive issues from recent fall and head injury Objective: Vital Signs Temp Pulse Resp BP Pulse Ox 36.4 C 84 16 131/82 H 96 01/18/19 12:10 01/18/19 12:10 01/18/19 12:10 01/18/19 12:10 01/18/19 12:10 Laboratory Results 01/18/19 06:40 01/17/19 01/18/19 01/19/19 05:59 05:59 05:59 Intake Total 620 Output Total 1800 600 Balance -1180 -600 - Physical Exam Constitutional: no apparent distress, appears nourished, not in pain Eyes: anicteric sclera, EOMI, other (graves) Cardiovascular: regular rate and rhythym, no murmur, rub, or gallop Respiratory: no respiratory distress Gastrointestinal: normoactive bowel sounds, soft, non-tender abdomen, no palpable masses Skin: warm Neurologic: AAOx3 Psychiatric: interacting appropriately, not anxious, not encephalopathic, thought process linear ICD10 Worksheet Patient Problems: Problems Problem Status Onset Abscess in epidural space of cervical spine Acute
[2019-01-18] MEDS: TAMSULOSIN HCL 0.4 MG CAP PO SCH (22:23)
[2019-01-18] MEDS: ZOLPIDEM TARTRATE 5 MG TAB PO PRN (22:37)
[2019-01-18] MEDS ORDERED: MAG HYDROX/AL HYDROX/SIMETH 30 ML UDCUP PO PRN (23:22)
[2019-01-18] MEDS ORDERED: MAG HYDROX/AL HYDROX/SIMETH 30 ML UDCUP PO ONE (23:30)
[2019-01-18] MEDS ORDERED: LIDOCAINE 2% VISCOUS 15 ML UDCUP PO ONE (23:30)
[2019-01-18] MEDS ORDERED: HYOSCYAMINE SULFATE 0.125 MG TAB PO ONE (23:30)
[2019-01-18] MEDS ORDERED: FAMOTIDINE 20 MG TAB PO PRN (23:48)
[2019-01-19] MEDS ORDERED: MAGNESIUM SULF 2 GM/WATER 50 ML IV ONE ×2 (08:05→19:00)
--- NOTE | 2019-01-19 08:34 | HOSPPROG ---
Hospitalist Progress Note Assessment/Plan: * Debility from C4-C5 hemilaminectomy and phlegmon washout * PT/OT * Cognitive Issues from head injury d/t recent fall pre-hospitalization * speech therapy * MSSA bacteremia * IV cefazolin till March 10 * Low magnesium * will give 2 doses Iv mag today and recheck tomorrow * Hyponatremia * watch * probably related to chf * Insomnia * better with increased ambien dose * h/o chf * h/o afib * urinary retention * cameron dc'd 01/18 - no issues * could probably dc flomax soon * DVT proph * pradaxa Subjective: had mild chest discomfort last night but resolved with GI cocktail. Fine today Objective: Vital Signs Temp Pulse Resp BP Pulse Ox 36.4 C 81 16 118/78 93 01/19/19 07:25 01/19/19 07:25 01/18/19 22:45 01/19/19 07:25 01/19/19 07:25 Laboratory Results 01/19/19 05:20 01/18/19 01/19/19 01/20/19 05:59 05:59 05:59 Intake Total 620 1150 Output Total 1800 1950 600 Balance -1180 -800 -600 - Physical Exam Constitutional: no apparent distress, appears nourished, not in pain Eyes: anicteric sclera, EOMI Ears, Nose, Mouth, Throat: moist mucous membranes Cardiovascular: regular rate and rhythym Respiratory: no respiratory distress Skin: warm Neurologic: AAOx3 Psychiatric: interacting appropriately, not anxious, not encephalopathic, thought process linear ICD10 Worksheet Patient Problems: Problems Problem Status Onset Abscess in epidural space of cervical spine Acute
[2019-01-19] MEDS: traMADol 50 MG TAB PO SCH ×2 (08:38→22:15)
[2019-01-19] MEDS: oxyCODONE IR 5 MG TAB PO PRN ×4 (08:39→21:01)
[2019-01-19] MEDS: SENNOSIDES/DOCUSATE SODIUM TAB PO SCH ×2 (08:41→21:09)
[2019-01-19] MEDS: DABIGATRAN ETEXILATE MESYL 150 MG CAP PO SCH ×2 (08:41→21:09)
[2019-01-19] MEDS: METHIMAZOLE 5 MG TAB PO SCH (08:41)
[2019-01-19] MEDS: METOPROLOL SUCCINATE XR 100 MG TAB PO SCH (08:41)
[2019-01-19] MEDS: MAGNESIUM OXIDE 400 MG TAB PO SCH ×2 (08:41→21:09)
[2019-01-19] MEDS: FLECAINIDE ACETATE 100 MG TAB PO SCH ×2 (08:42→21:08)
[2019-01-19] MEDS: SPIRONOLACTONE 25 MG TAB PO SCH (08:42)
[2019-01-19] MEDS: ZOLPIDEM TARTRATE 5 MG TAB PO PRN (21:07)
[2019-01-19] MEDS: TAMSULOSIN HCL 0.4 MG CAP PO SCH (21:10)
[2019-01-20] MEDS: DABIGATRAN ETEXILATE MESYL 150 MG CAP PO SCH ×2 (08:34→22:04)
[2019-01-20] MEDS: FLECAINIDE ACETATE 100 MG TAB PO SCH ×2 (08:34→22:05)
[2019-01-20] MEDS: MAGNESIUM OXIDE 400 MG TAB PO SCH ×2 (08:36→22:05)
[2019-01-20] MEDS: METHIMAZOLE 5 MG TAB PO SCH (08:37)
[2019-01-20] MEDS: METOPROLOL SUCCINATE XR 100 MG TAB PO SCH (08:38)
[2019-01-20] MEDS: SPIRONOLACTONE 25 MG TAB PO SCH (08:39)
[2019-01-20] MEDS: SENNOSIDES/DOCUSATE SODIUM TAB PO SCH ×2 (08:39→22:05)
[2019-01-20] MEDS: traMADol 50 MG TAB PO SCH ×2 (08:42→22:04)
[2019-01-20] MEDS: oxyCODONE IR 5 MG TAB PO PRN ×3 (08:45→17:18)
--- NOTE | 2019-01-20 12:25 | PDOREHIP ---
Admission [facility] - Admission - 3 Day Assessment Period Admission Date/Day 1: 01/17/19 Day 2: 01/18/19 Day 3: 01/19/19 - Active Diagnoses Comorbidities and Co-existing Conditions at Admission: 94607. None of the Above - Skin Conditions Unhealed Pressure Ulcer (1 or more/Stage 1 or >)-Admission: 0. No # Stage 1 Pressure Ulcers-Admission: 0 # Stage 2 Pressure Ulcers-Admission: 0 # Stage 3 Pressure Ulcers-Admission: 0 # Stage 4 Pressure Ulcers-Admission: 0 # Unstageable Pressure Ulcers (Non-remove Dress)-Admission: 0 # Unstageable Pressure Ulcers (Slough/Eschar)-Admission: 0 # Unstageable Pressure Ulcers (Deep Tissue Injury)-Admission: 0
--- NOTE | 2019-01-20 12:25 | SOAPPROG ---
SOAP Progress Note Assessment/Plan: Assessment: Debility status post C4-5 right hemilaminectomy and washout of epidural phlegmon. * Initial functional in his measure is 89 on 01/20/2019. Standby assist for bed mobility. Transfers standby assist with a front wheeled walker. Ambulated 200 ft standby assist with a front wheeled walker. Supervision for activities of daily living. * Continue PT and OT to optimize mobility and activities of daily living to the modified independent level. Methicillin-sensitive Staph aureus on surgical site swab and blood cultures. Continue cefazolin for a total of 8 weeks with the stop date of March 10. CBC and CMP to be drawn every Sunday and faxed to Dr. Mcmillan at [phone]. Left lower quadrant pelvic pain. Unclear etiology. If it does not improve, will proceed with imaging, ultrasound versus CT scan. Hyponatremia and hypomagnesemia. She continues to have slightly low sodium at 1 :34 a.m.. Magnesium has normalized on labs 01/20/2019. Cognitive impairment. She was seen by [employer]. She scored 23/30 on the [place] A cognitive Assessment, with deficits to memory and attention. Graves disease. Continue methimazole. She appears to have adequate control. She reports that she was considering surgery for her proptosis, and this should most likely be postponed until after she completes her antibiotics and is clear of any infection. Atrial fibrillation. Continue metoprolol and dabigatran, as well as flecainide. Congestive heart failure by history. If she has heart failure, it appears to be compensated. Continue metoprolol and spironolactone. If she develops elevated blood pressures, consider restarting losartan. History of alcohol abuse and dependence. It seems likely on review of hospital record that she may have gone through alcohol withdrawal along with toxic metabolic encephalopathy. It would be in her best interest to not return to a high level of alcohol use. Case Management can work with her to seek appropriate treatment after her discharge. Insomnia has been treated with zolpidem while in the hospital. Risks and benefits were discussed with the patient. It is ordered as p.r.n. Urinary retention. Rust catheter has been removed in she has no urinary retention presently. Continue tamsulosin. DISPOSITION: Attended staffing, 15 min. Discussed with case management, nursing, dietitian, PT, OT, [employer]. Intends to return home with her . Needs to be able to climb and descend 4 steps. Discharge plan for 01/23/2019. She will have outpatient PT OT and [employer]. FOLLOWUP: She should see Dr. Resendiz, neurosurgery, in 2-3 weeks with a repeat MRI of the C-spine done with and without contrast. She should have a weekly CBC with differential and a CMP, to be faxed to infectious disease, Dr. Mcmillan, at [phone]. 01/20/19 12:32 Subjective: Has left pelvic pain. Thinks it is because the urinary catheter was left in too long. Continues to have right neck and shoulder pain. Complains of adhesive in her hair from the dressing on her neck. Sleeping well with zolpidem but she requires 10 mg rather than 5 mg. She finds oxycodone helpful for the pain. Otherwise without complaints. Objective: Vital Signs Temp Pulse Resp BP Pulse Ox 36.6 C 84 18 131/79 H 91 L 01/20/19 07:25 01/20/19 07:25 01/20/19 07:25 01/20/19 07:25 01/20/19 07:25 Laboratory Results 01/20/19 06:09 01/19/19 01/20/19 01/21/19 05:59 05:59 05:59 Intake Total 1150 800 480 Output Total 1950 1300 Balance -800 -500 480 - Time Spent With Patient Time Spent With Patient: Greater than 35 min floor time today, including more than 50% of time in coordination of care during staffing meeting, and counseling patient. Physical Exam - Physical Exam General Appearance: WD/WN, alert, no apparent distress Respiratory: normal breath sounds, No crackles, No rhonchi, No wheezing Cardiac/Chest: regular rate, rhythm, systolic murmur Abdomen: normal bowel sounds, non-tender, soft, No distended Skin: normal color, warm/dry Neuro/Psych: alert, normal mood/affect, oriented x 3 ICD10 Worksheet Patient Problems: Problems Problem Status Onset Abscess in epidural space of cervical spine Acute
[2019-01-20 14:17] LABS: PLATELET COUNT 391 10^3/uL (150-400)
[2019-01-20] MEDS: TAMSULOSIN HCL 0.4 MG CAP PO SCH (22:05)
[2019-01-20] MEDS: ZOLPIDEM TARTRATE 5 MG TAB PO PRN (22:11)
[2019-01-21] MEDS: oxyCODONE IR 5 MG TAB PO PRN ×2 (08:12→17:21)
[2019-01-21] MEDS: traMADol 50 MG TAB PO SCH ×2 (08:13→21:48)
[2019-01-21] MEDS: DABIGATRAN ETEXILATE MESYL 150 MG CAP PO SCH ×2 (08:14→21:49)
[2019-01-21] MEDS: SPIRONOLACTONE 25 MG TAB PO SCH (08:15)
[2019-01-21] MEDS: METOPROLOL SUCCINATE XR 100 MG TAB PO SCH (08:16)
[2019-01-21] MEDS: MAGNESIUM OXIDE 400 MG TAB PO SCH ×2 (08:19→21:49)
[2019-01-21] MEDS: FLECAINIDE ACETATE 100 MG TAB PO SCH ×2 (08:19→21:49)
[2019-01-21] MEDS: METHIMAZOLE 5 MG TAB PO SCH (08:20)
[2019-01-21] MEDS: SENNOSIDES/DOCUSATE SODIUM TAB PO SCH ×2 (08:20→21:49)
--- NOTE | 2019-01-21 11:53 | SOAPPROG ---
SOAP Progress Note Assessment/Plan: Assessment: Debility status post C4-5 right hemilaminectomy and washout of epidural phlegmon. * Initial functional in his measure is 89 on 01/20/2019. Standby assist for bed mobility. Transfers standby assist with a front wheeled walker. Ambulated 200 ft standby assist with a front wheeled walker. Supervision for activities of daily living. * Continue PT and OT to optimize mobility and activities of daily living to the modified independent level. Methicillin-sensitive Staph aureus on surgical site swab and blood cultures. Continue cefazolin for a total of 8 weeks with the stop date of March 10. CBC and CMP to be drawn every Sunday and faxed to Dr. Mcmillan at [phone]. Left lower quadrant pelvic pain. Unclear etiology. Will get abdominal CT scan . Hyponatremia and hypomagnesemia. She continues to have slightly low sodium at 1 :34 a.m.. Magnesium has normalized on labs 01/20/2019. Anemia, unclear etiology, slight worse than during hospitalization. Brisk reticulocytosis. Continue weekly CBC per ID. Check stool hemoccult. Cognitive impairment. She was seen by [employer]. She scored 23/30 on the [place] cognitive Assessment, with deficits to memory and attention. Graves disease. Continue methimazole. She appears to have adequate control. She reports that she was considering surgery for her proptosis, and this should most likely be postponed until after she completes her antibiotics and is clear of any infection. Atrial fibrillation. Continue metoprolol and dabigatran, as well as flecainide. Congestive heart failure by history. If she has heart failure, it appears to be compensated. Continue metoprolol and spironolactone. If she develops elevated blood pressures, consider restarting losartan. * Continue PRN O2. May improve as anemia resolves. History of alcohol abuse and dependence. It seems likely on review of hospital record that she may have gone through alcohol withdrawal along with toxic metabolic encephalopathy. It would be in her best interest to not return to a high level of alcohol use. Case Management can work with her to seek appropriate treatment after her discharge. Insomnia has been treated with zolpidem while in the hospital. Risks and benefits were discussed with the patient. It is ordered as p.r.n. Urinary retention. Rust catheter has been removed in she has no urinary retention presently. Continue tamsulosin. DISPOSITION: Attended staffing, 15 min. Discussed with case management, nursing, dietitian, PT, OT, [employer]. Intends to return home with her . Needs to be able to climb and descend 4 steps. Discharge plan for 01/23/2019. She will have outpatient PT OT and [employer]. FOLLOWUP: She should see Dr. Resendiz, neurosurgery, in 2-3 weeks with a repeat MRI of the C-spine done with and without contrast. She should have a weekly CBC with differential and a CMP, to be faxed to infectious disease, Dr. Mcmillan, at [phone]. 01/21/19 11:40 Subjective: Still has intermittent R pelvic pain. Otherwise without complaints. Pain improving and able to use cane with right arm. Objective: Vital Signs Temp Pulse Resp BP Pulse Ox 36.7 C 73 17 131/86 H 92 01/20/19 19:22 01/21/19 07:18 01/21/19 06:07 01/21/19 07:18 01/21/19 07:18 Laboratory Results 01/20/19 14:00 01/20/19 06:09 01/20/19 01/21/19 01/22/19 05:59 05:59 05:59 Intake Total 800 1552 348 Output Total 1300 Balance -500 1552 348 Physical Exam - Physical Exam General Appearance: WD/WN, alert, no apparent distress Respiratory: normal breath sounds, No crackles, No rhonchi, No wheezing Cardiac/Chest: regular rate, rhythm, No edema, No JVD, No diastolic murmur, No systolic murmur Abdomen: non-tender, soft, No distended Skin: normal color, warm/dry Neuro/Psych: alert, normal mood/affect, oriented x 3, abnormal gait (Ambulates with PT using cane in R hand, wide base of support.) ICD10 Worksheet Patient Problems: Problems Problem Status Onset Abscess in epidural space of cervical spine Acute
--- NOTE | 2019-01-21 14:48 | PDIAF ---
- Diagnosis Diagnosis: MSSA Bacteremia; Cervical epidural abscess Code Status: Full Code - Medication Management Senior Care Antibiotics: Cefazolin 6 g IV q 24 hours by continuous infusion Senior Care Antibiotic Stop Date: 03/11/19 Discharge Medications: electronically signed and located in the Home Medication List. PICC Care - Routine: Yes - Orders Services needed: Home Senior Care Care Face to Face: I certify that this patient was under my care and that I had the required [id number] encounter meeting the encounter requirements on the discharge day. My findings support the fact that the patient is homebound as defined in Home Care Face to Face Continued: CMS Chapter 7 Medicare Benefits Manual 30.1.1 , The condition of the patient is such that there exists a normal inability to leave home and consequently, leaving home would require a considerable and taxing effort. Additional Instructions: [employer]: Minimize distractions when completing important tasks e.g. turn off the TV when reading the mail or paying bills. Double check all important paperwork to minimize risk for errors. Consider use of a daily special events planner or e-calendar to assist with recall/tracking of day to day needs and appointments. Take rest breaks to avoid effects of fatigue. - Labs/Radiology CBC w/diff Date: 01/27/19 (weekly q sunday) CMP Date: 01/27/19 (weekly q sunday) Call or Fax Lab and Imaging Results to: Dr. Mcmillan, - Follow Up Care Current Providers and Referrals: GABY DYKES [Other] - 01/29/19 10:25 am (Please check in on 01/29/19 at 10: 25 am at [employer] [facility], and bring meds list, ID, Ins cards, and copay ) [facility], Infusion services for antibiotics [Other] ([facility] to set up continuous infusion for pt per Dr Lalo Mcmillan, and [facility] to train family on at 10 am, supplies will be onsite prior to DC.) Michael Resendiz MD [Medical Doctor] - agency to contact patient (you will need repeat MRI with and without contrast, please followup with post op appt with Dr Resendiz on date TBD. Vergara will call you from [facility] with followup time and date.) aLlo Mcmillan MD [Medical Doctor] - 01/30/19 1:30 pm ([facility] RN will visit and will draw blood and fax in weekly CBC with differntial and CMP to Dr Mcmillan's office, and I have left msg for them regarding how to contact you. [employer] is your infusion company, who will supply your medications. They can be reached at [phone].)
--- NOTE | 2019-01-21 18:57 | PCMIDPN ---
Assessment/Plan: Assessment/Plan: * MSSA bacteremia with cervical epidural phlegmon status post incision and drainage: Marked clinical improvement and tolerating cefazolin well. Patient with plans to be discharged from rehab 01/23/2019. Currently receiving cefazolin 1 g IV q.8 hours which will be increased to 2 g IV q.8 hours given presence of MSSA bacteremia. Anticipate 8 week course of therapy in the setting of epidural phlegmon. Side effects of cefazolin including potential for allergic reactions, C difficile colitis, bone marrow suppression, and kidney /liver dysfunction discussed with patient today. Discussed that weekly lab monitoring will be performed. Anticipate using cefazolin 6 g by continuous infusion after discharge for ease of outpatient administration. Patient will follow-up with me in the office 1 week after discharge. * Right lower lobe consolidation: No clinical findings of pneumonia. Will observe without adjustment of antibiotics currently. Time spent, greater than 35 min, of which greater than half was spent in education/counseling/coordination of care related to MSSA bacteremia, cervical epidural phlegmon, and plan of care including use of cefazolin by continuous infusion after discharge. 01/21/19 18:54 01/21/19 18:58 Subjective: Patient feels significantly improved. Describes having left lower quadrant pain intermittently. Objective: Vital Signs Temp Pulse Resp BP Pulse Ox 36.7 C 73 17 131/86 H 92 01/20/19 19:22 01/21/19 07:18 01/21/19 06:07 01/21/19 07:18 01/21/19 07:18 Laboratory Results 01/20/19 14:00 01/20/19 06:09 01/20/19 01/21/19 01/22/19 05:59 05:59 05:59 Intake Total 800 1552 1025 Output Total 1300 Balance -500 1552 1025 Cefazolin 1 g IV q.8 hours (stop date 03/11/2018) CT abdomen pelvis with right lower lobe consolidation Laboratory Tests 01/11/19 01/20/19 11:25 06:09 Total Bilirubin 0.4 0.4 AST 22 22 ALT 36 17 Alkaline Phosphatase 92 74 Albumin 2.7 L - Physical Exam General Appearance: alert, no apparent distress EENT: No scleral icterus, No conjunctival petechiae Respiratory: lungs clear, No respiratory distress Neck: other (Cervical incision healing well without erythema or drainage) Cardiac/Chest: regular rate, rhythm Abdomen: non-tender, No distended Skin: No embolic lesions ICD10 Worksheet Patient Problems: Problems Problem Status Onset Abscess in epidural space of cervical spine Acute
[2019-01-21] MEDS: ZOLPIDEM TARTRATE 5 MG TAB PO PRN (21:48)
[2019-01-21] MEDS: TAMSULOSIN HCL 0.4 MG CAP PO SCH (21:49)
[2019-01-21] MEDS: NYSTATIN POWDER 15 GM BTL TP SCH (22:01)
[2019-01-21] MEDS: ceFAZolin 2 GM/DEXTROSE 100 ML IV SCH (22:06)
[2019-01-22] MEDS: oxyCODONE IR 5 MG TAB PO PRN ×5 (03:42→21:36)
[2019-01-22] MEDS: ceFAZolin 2 GM/DEXTROSE 100 ML IV SCH ×3 (05:07→21:36)
[2019-01-22] MEDS: FLECAINIDE ACETATE 100 MG TAB PO SCH ×2 (08:20→21:11)
[2019-01-22] MEDS: SPIRONOLACTONE 25 MG TAB PO SCH (08:21)
[2019-01-22] MEDS: METOPROLOL SUCCINATE XR 100 MG TAB PO SCH (08:22)
[2019-01-22] MEDS: MAGNESIUM OXIDE 400 MG TAB PO SCH ×2 (08:24→21:11)
[2019-01-22] MEDS: traMADol 50 MG TAB PO SCH ×2 (08:24→21:12)
[2019-01-22] MEDS: SENNOSIDES/DOCUSATE SODIUM TAB PO SCH ×2 (08:25→21:12)
[2019-01-22] MEDS: METHIMAZOLE 5 MG TAB PO SCH (08:25)
[2019-01-22] MEDS: DABIGATRAN ETEXILATE MESYL 150 MG CAP PO SCH ×2 (08:26→21:11)
[2019-01-22] MEDS: NYSTATIN POWDER 15 GM BTL TP SCH (08:27)
[2019-01-22] MEDS: CLOTRIMAZOLE 1% 15 GM CRTUBE TP SCH ×2 (09:40→21:10)
--- NOTE | 2019-01-22 11:52 | SOAPPROG ---
SOAP Progress Note Assessment/Plan: Assessment: Debility status post C4-5 right hemilaminectomy and washout of epidural phlegmon. * Initial functional in his measure is 89 on 01/20/2019. Standby assist for bed mobility. Transfers standby assist with a front wheeled walker. Ambulated 200 ft standby assist with a front wheeled walker. Supervision for activities of daily living. * Continue PT and OT to optimize mobility and activities of daily living to the modified independent level. Methicillin-sensitive Staph aureus on surgical site swab and blood cultures. Continue cefazolin for a total of 8 weeks with the stop date of March 10. CBC and CMP to be drawn every Sunday and faxed to Dr. Mcmillan at [phone]. Seen by Dr. Mcmillan 01/21/2019. Appreciate assistance. Left lower quadrant pelvic pain. Unclear etiology. * No pathology seen on abdominal CT scan 01/21/2019. Hyponatremia and hypomagnesemia. She continues to have slightly low sodium at 1 :34 a.m.. Magnesium has normalized on labs 01/20/2019. Anemia, unclear etiology, slight worse than during hospitalization. Brisk reticulocytosis. Continue weekly CBC per ID. Check stool hemoccult. Tinea, left axilla. Initiated nystatin powder 01/21/2019. Change to clotrimazole cream, 01/22/2019. Observe for improvement. Cognitive impairment. She was seen by [facility]. She scored 23/30 on the [place] cognitive Assessment, with deficits to memory and attention. Graves disease. Continue methimazole. She appears to have adequate control. She reports that she was considering surgery for her proptosis, and this should most likely be postponed until after she completes her antibiotics and is clear of any infection. Atrial fibrillation. Continue metoprolol and dabigatran, as well as flecainide. Congestive heart failure by history. If she has heart failure, it appears to be compensated. Continue metoprolol and spironolactone. If she develops elevated blood pressures, consider restarting losartan. * Continue PRN O2. May improve as anemia resolves. * Has infiltrate versus scarring, right lower lobe, seen on abdominal CT 2018. No signs or symptoms of pneumonia. History of alcohol abuse and dependence. It seems likely on review of hospital record that she may have gone through alcohol withdrawal along with toxic metabolic encephalopathy. It would be in her best interest to not return to a high level of alcohol use. Case Management can work with her to seek appropriate treatment after her discharge. Insomnia has been treated with zolpidem while in the hospital. Risks and benefits were discussed with the patient. It is ordered as p.r.n. Urinary retention. Rust catheter has been removed in she has no urinary retention presently. Continue tamsulosin. DISPOSITION: Attended staffing, 15 min, 01/20/2019. Discussed with case management, nursing, dietitian, PT, OT, [facility]. Intends to return home with her . Needs to be able to climb and descend 4 steps. Discharge plan for . She will have outpatient PT OT and [facility]. FOLLOWUP: She should see Dr. Resendiz, neurosurgery, in 2-3 weeks with a repeat MRI of the C-spine done with and without contrast. She should have a weekly CBC with differential and a CMP, to be faxed to infectious disease, Dr. Mcmillan, at [phone]. 01/22/19 11:49 Subjective: Complains of itchy rash in her left axilla. Otherwise without complaints. Denies cough or dyspnea, denies fevers or chills. Objective: Vital Signs Temp Pulse Resp BP Pulse Ox 36.6 C 837 H 16 119/60 86 L 01/22/19 08:00 01/22/19 08:22 01/21/19 19:13 01/22/19 08:22 01/22/19 08:00 Laboratory Results 01/20/19 14:00 01/20/19 06:09 01/21/19 01/22/19 01/23/19 05:59 05:59 05:59 Intake Total 1552 1790 Output Total 500 Balance 1552 1790 -500 Physical Exam - Physical Exam General Appearance: WD/WN, alert, no apparent distress Respiratory: normal breath sounds, No crackles, No rhonchi, No wheezing Cardiac/Chest: regular rate, rhythm Skin: normal color, warm/dry, other (Flaky erythema patch approximately 8 x 10 cm in left axilla, with satellite lesions.) Neuro/Psych: alert, normal mood/affect, oriented x 3 ICD10 Worksheet Patient Problems: Problems Problem Status Onset Abscess in epidural space of cervical spine Acute
--- NOTE | 2019-01-22 17:52 | PDHOMEO2F ---
Home Oxygen Face to Face Home Orders: I certify that a physician or a nurse practitioner or physician's registered dental assistant rda has had a [id number] encounter with this patient on the date of this order due to the diagnosis listed, which relates to the primary reason the patient requires home oxygen. Alternative treatments have been tried, or considered, and deemed ineffective. It is anticipated that supplemental oxygen will result in improvement with treatment. Home oxygen qualifying diagnosis: CHF SpO2 on room air (%): 86 Frequency of home oxygen needed: with activity Home oxygen liters per minute: 2 Home oxygen delivery device: nasal cannula Concentrator: Yes E-tanks for mobility and back up: Yes If ordering portable O2, is the patient mobile in the home?: Yes I certify that, based on these findings, the home oxygen is medically necessary for this patient for the following length of time: Length of time home oxygen needed: 3 months
[2019-01-22] MEDS: TAMSULOSIN HCL 0.4 MG CAP PO SCH (21:12)
[2019-01-22] MEDS: ZOLPIDEM TARTRATE 5 MG TAB PO PRN (21:36)
[2019-01-23] MEDS: ceFAZolin 2 GM/DEXTROSE 100 ML IV SCH (06:14)
[2019-01-23 06:16] VITALS: BP 112/91
[2019-01-23] MEDS: DABIGATRAN ETEXILATE MESYL 150 MG CAP PO SCH (08:20)
[2019-01-23] MEDS: MAGNESIUM OXIDE 400 MG TAB PO SCH (08:21)
[2019-01-23] MEDS: FLECAINIDE ACETATE 100 MG TAB PO SCH (08:21)
[2019-01-23] MEDS: METOPROLOL SUCCINATE XR 100 MG TAB PO SCH (08:21)
[2019-01-23] MEDS: traMADol 50 MG TAB PO SCH (08:22)
[2019-01-23] MEDS: METHIMAZOLE 5 MG TAB PO SCH (08:22)
[2019-01-23] MEDS: SPIRONOLACTONE 25 MG TAB PO SCH (08:22)
[2019-01-23] MEDS: SENNOSIDES/DOCUSATE SODIUM TAB PO SCH (08:22)
[2019-01-23] MEDS: oxyCODONE IR 5 MG TAB PO PRN (08:23)
--- NOTE | 2019-01-23 12:53 | GDS ---
[f rep st] DISCHARGE SUMMARY ADMITTING DIAGNOSIS: Debility, status post C4-5 right hemilaminectomy and evacuation of cervical epidural phlegmon. DISCHARGE DIAGNOSIS: Debility, status post C4-5 right hemilaminectomy and evacuation of cervical epidural phlegmon. OTHER DISCHARGE DIAGNOSES: 1. Methicillin sensitive Staphylococcus aureus bacteremia. 2. Left lower quadrant pelvic pain. 3. Anemia. 4. Tinea, left axilla. 5. Atrial fibrillation. 6. Hypoxia. 7. Congestive heart failure. COMPLICATIONS: None. PROCEDURES: None. CONSULTATIONS: She was seen by Infectious Disease physician, Dr. Lalo Mcmillan. HISTORY AND HOSPITAL COURSE: This patient came to inpatient rehabilitation from [facility]. She had been hospitalized there with right neck and shoulder pain. MRI showed an epidural fluid collection C3 through C5. She had been taking dabigatran for atrial fibrillation, and this had to be reversed, which was done by abstaining from the medication for 3 days. She subsequently underwent surgery with C4-C5 hemilaminectomy and washout of the epidural phlegmon. Surgical site cultures as well as blood cultures grew methicillin sensitive Staph aureus. She was treated with IV cefazolin with a plan for 8 weeks of therapy. She did well during her rehabilitation stay. She was independent with bed mobility. She had modified independence using a front-wheeled walker for transfers. She walked 150 feet or more using a straight cane with standby assist and occasional cues for proper use, or with a front-wheeled walker independently. She was able to climb and descend 10 stairs with 1 rail and cues and supervision for safety. She achieved independence or modified independence using assistive devices for activities of daily living. She needed supervision for safety with kitchen tasks and she needed cues to adhere to her cervical spine precautions at times. She was seen by Speech and Language Pathology and noted to have mild deficits to attention, memory and problem solving/reasoning. She continued IV cefazolin. She was seen by Infectious Disease physician, Dr. Mcmillan. She will go home on cefazolin 6 g IV every 24 hours by continuous infusion. On the day before discharge, nursing noted a red patch in her right axilla. On examination, this was consistent with tinea. She was treated with clotrimazole , and has had improvement in symptoms of itching and burning, and skin has begun to heal. She had anemia. It worsened slightly during her rehabilitation stay. On 2018, in the hospital, hemoglobin was 8.9 and hematocrit was 27. On 01/20/2019 , on the rehabilitation unit, hemoglobin was 8.6 and hematocrit was 26.2. She had brisk reticulocytosis with an absolute reticulocyte count of 0.13 and percent reticulocytes of 4.92. Stool hemoccults were ordered but were not obtained. She will have a followup CBC as well as a CMP done weekly for monitoring during her antibiotic therapy. She has a history of congestive heart failure. She was continued on metoprolol and spironolactone. She needed oxygen with activity. It was thought it will likely improve as her anemia resolves. DISCHARGE CONDITION: Good. DIET: Regular, with regular texture and thin liquids. ACTIVITY: Ad nils, but she should have supervision for kitchen tasks. ALLERGIES: There were no new allergies noted during her stay. She has an allergy listed to antihistamines. MEDICATIONS UPON DISCHARGE: 1. Cefazolin 6 g IV daily by continuous infusion. 2. Clotrimazole 1 application to her right axilla twice daily. 3. Dabigatran 150 mg p.o. twice daily. 4. Famotidine 20 mg p.o. twice daily. 5. Flecainide 50 mg p.o. twice daily. 6. Magnesium oxide 400 mg p.o. twice daily. 7. Methimazole 5 mg p.o. daily. 8. Metoprolol ER 200 mg p.o. daily. 9. Oxycodone 5 to 10 mg p.o. q.3 hours p.r.n. 10. Senna/docusate 2 tabs p.o. twice daily. 11. Spironolactone 12.5 mg p.o. daily. 12. Tamsulosin 0.4 mg p.o. at bedtime. 13. Tramadol 50 mg p.o. twice daily. 14. Zolpidem 5 mg p.o. at bedtime p.r.n. ISSUES TO BE ADDRESSED AT FOLLOWUP: 1. Mobility and activities of daily living. She will have home physical therapy. 2. Status post C4-C5 hemilaminectomy. She will follow up neurosurgeon Dr. Michael Resendiz. 3. MSSA bacteremia. Followup with Dr. Lalo Mcmillan is scheduled for 01/29/2019. She will have a CBC and CMP drawn every Sunday, which will be faxed to Dr. Mcmillan' s office. TIME SPENT: Greater than 30 minutes were spent on this discharge including medication reconciliation, coordination of care, and counseling of the patient and . The patient was seen and examined on the day of discharge. Copy requested to: Dr Mary Johnson /[id number]/[id number] MTDD
[2019-01-23] MEDS: CLOTRIMAZOLE 1% 15 GM CRTUBE TP SCH (13:22)
== END 2019-01-23 11:20 | disposition home health service (06) | DRG 860 ==
LOC: F3E 15:24
PROVIDERS: ADMIT Internal Medicine Hospice and Palliative Medicine; ATTEND Internal Medicine Hospice and Palliative Medicine
DX: R53.81 Other malaise (principal); G06.1 Intraspinal abscess and granuloma; M48.02 Spinal stenosis, cervical region; E05.00 Thyrotoxicosis with diffuse goiter without thyrotoxic crisis or storm; R78.81 Bacteremia; B95.61 Methicillin susceptible Staphylococcus aureus infection as the cause of diseases classified elsewhere; B35.9 Dermatophytosis, unspecified; I48.0 Paroxysmal atrial fibrillation; I11.0 Hypertensive heart disease with heart failure; I50.9 Heart failure, unspecified; G31.84 Mild cognitive impairment of uncertain or unknown etiology; E83.42 Hypomagnesemia; G47.00 Insomnia, unspecified; R33.9 Retention of urine, unspecified; R10.2 Pelvic and perineal pain; Z85.3 Personal history of malignant neoplasm of breast; Z79.01 Long term (current) use of anticoagulants; Z92.3 Personal history of irradiation; F17.210 Nicotine dependence, cigarettes, uncomplicated
CPT/HCPCS: 92507-GN; 92523-GN; 97110-GO; 97110-GP; 97116-GP; 97162-GP; 97165-GO; 97530-GO; 97530-GP; 97535-GO; J0690; J3475